=== PATIENT | male | born 1945 | race Caucasian/White ===

== ENCOUNTER 2020-07-25 07:49 | Outpatient (REF) | payer MEDICARE, SELFPAY ==
[2020-07-25 12:05] LABS: Alanine Aminotransferase 19 U/L (0-40); Albumin Level 4.2 g/dL (3.5-5.0); Alkaline Phosphatase 70 U/L (39-117); Anion Gap 12 (12-20); Aspartate Amino Transferase 16 U/L (5-37); Bilirubin Total 0.6 mg/dL (0.0-1.0); Blood Urea Nitrogen 13 mg/dL (9-16); Calcium 8.8 mg/dL (8.4-10.2); Carbon Dioxide 27 mmol/L (22-29); Chloride 105 mmol/L (96-108); Cholesterol 144 mg/dL; Estimated Glomerular Filt Rate > 60; Glucose Fasting 150 mg/dL (60-99); HDL Cholesterol 38 mg/dL; LDL Cholesterol Calculated 81 mg/dl; Potassium 4.6 mmol/l (3.3-5.1); Sodium 139 mmol/L (135-145); Total Protein 6.4 g/dL (6.5-8.0); Triglycerides 126 mg/dL
[2020-07-25 12:09] LABS: Estimated Average Glucose 163 mg/dL; Hemoglobin A1c % 7.3 %
== END 2020-07-25 07:50 | disposition home or self-care (01) ==
LOC: HO.MANLR 07:49
PROVIDERS: PCP Internal Medicine; Visit Provider Internal Medicine
DX: E11.9 Type 2 diabetes mellitus without complications (principal)
CPT/HCPCS: 80053; 80061; 83036

== ENCOUNTER 2020-07-31 15:20 | Outpatient (REF) | payer MEDICARE, SELFPAY ==
[2020-08-01 04:40] LABS: ~HepC Num1 0.13 S/CO (0.00-0.79); ~Hepatitis C Antibody Nonreactive (Nonreactive)
== END 2020-07-31 15:21 | disposition home or self-care (01) ==
LOC: HO.MANLDS 15:20
PROVIDERS: PCP Internal Medicine; Visit Provider Internal Medicine
DX: Z00.00 Encounter for general adult medical examination without abnormal findings (principal)
CPT/HCPCS: 86803

== ENCOUNTER 2020-10-25 08:20 | Outpatient (REF) | payer MEDICARE, SELFPAY ==
[2020-10-25 11:26] LABS: Alanine Aminotransferase 21 U/L (0-40); Albumin Level 4.2 g/dL (3.5-5.0); Alkaline Phosphatase 80 U/L (39-117); Anion Gap 10 (12-20); Aspartate Amino Transferase 15 U/L (5-37); Bilirubin Total 0.6 mg/dL (0.0-1.0); Blood Urea Nitrogen 14 mg/dL (9-16); Carbon Dioxide 28 mmol/L (22-29); Chloride 104 mmol/L (96-108); Cholesterol 150 mg/dL; Estimated Glomerular Filt Rate > 60; Glucose Fasting 177 mg/dL (60-99); HDL Cholesterol 36 mg/dL; LDL Cholesterol Calculated 87 mg/dl; Potassium 4.4 mmol/L (3.3-5.1); Sodium 138 mmol/L (135-145); Total Protein 6.5 g/dL (6.5-8.0); Triglycerides 139 mg/dL
[2020-10-25 11:44] LABS: Estimated Average Glucose 180 mg/dL; Hemoglobin A1c % 7.9 %
[2020-10-25 16:50] LABS: Creatinine Urine 139.84 mg/dL; Microalbum/Creatinine Ratio Ur 15.7 ug/mg cr
== END 2020-10-25 08:21 | disposition home or self-care (01) ==
LOC: HO.MANLR 08:20
PROVIDERS: PCP Internal Medicine; Visit Provider Internal Medicine
DX: E11.9 Type 2 diabetes mellitus without complications (principal)
CPT/HCPCS: 36415; 80053; 80061; 82043; 83036

== ENCOUNTER 2021-01-30 07:57 | Outpatient (REF) | payer MEDICARE, SELFPAY ==
[2021-01-30 12:31] LABS: Estimated Average Glucose 180 mg/dL; Hemoglobin A1c % 7.9 %
== END 2021-01-30 07:58 | disposition home or self-care (01) ==
LOC: HO.MANLDS 07:57
PROVIDERS: PCP Internal Medicine; Visit Provider Internal Medicine
DX: E11.9 Type 2 diabetes mellitus without complications (principal)
CPT/HCPCS: 36415; 83036

== ENCOUNTER 2021-05-18 07:46 | Outpatient (REF) | payer MEDICARE, SELFPAY ==
[2021-05-18 11:49] LABS: Alanine Aminotransferase 25 U/L (0-40); Albumin Level 4.2 g/dL (3.5-5.0); Alkaline Phosphatase 68 U/L (39-117); Anion Gap 11 (12-20); Aspartate Amino Transferase 18 U/L (5-37); Bilirubin Total 0.9 mg/dL (0.0-1.0); Blood Urea Nitrogen 13 mg/dL (9-16); Calcium 9.3 mg/dL (8.4-10.2); Carbon Dioxide 25 mmol/L (22-29); Chloride 107 mmol/L (96-108); Cholesterol 155 mg/dL; Estimated Glomerular Filt Rate > 60; Glucose Fasting 164 mg/dL (60-99); HDL Cholesterol 40 mg/dL; LDL Cholesterol Calculated 87 mg/dl; Potassium 4.4 mmol/L (3.3-5.1); Sodium 139 mmol/L (135-145); Total Protein 6.3 g/dL (6.5-8.0); Triglycerides 140 mg/dL
[2021-05-18 12:58] LABS: Creatinine Urine 152.38 mg/dL
[2021-05-19 07:21] LABS: Estimated Average Glucose 166 mg/dL; Hemoglobin A1c % 7.4 %
== END 2021-05-18 07:47 | disposition home or self-care (01) ==
LOC: HO.MANLDS 07:46
PROVIDERS: PCP Internal Medicine; Visit Provider Internal Medicine
DX: E11.9 Type 2 diabetes mellitus without complications (principal)
CPT/HCPCS: 36415; 80053; 80061; 82043; 83036

== ENCOUNTER 2021-08-07 07:45 | Outpatient (REF) | payer MEDICARE, SELFPAY ==
[2021-08-07 11:17] LABS: Estimated Average Glucose 189 mg/dL; Hemoglobin A1c % 8.2 %
== END 2021-08-07 07:46 | disposition home or self-care (01) ==
LOC: HO.MANLDS 07:45
PROVIDERS: PCP Internal Medicine; Visit Provider Internal Medicine
DX: E11.9 Type 2 diabetes mellitus without complications (principal)
CPT/HCPCS: 36415; 83036

== ENCOUNTER 2021-10-31 07:48 | Outpatient (REF) | payer MEDICARE, SELFPAY ==
[2021-10-31 11:29] LABS: Alanine Aminotransferase 25 U/L (0-40); Albumin Level 4.2 g/dL (3.5-5.0); Alkaline Phosphatase 76 U/L (39-117); Anion Gap 11 (12-20); Aspartate Amino Transferase 19 U/L (5-37); Bilirubin Total 0.6 mg/dL (0.0-1.0); Blood Urea Nitrogen 11 mg/dL (9-16); Calcium 9.2 mg/dL (8.4-10.2); Carbon Dioxide 27 mmol/L (22-29); Chloride 105 mmol/L (96-108); Cholesterol 158 mg/dL; Estimated Average Glucose 192 mg/dL; Estimated Glomerular Filt Rate > 60; Glucose Fasting 161 mg/dL (60-99); HDL Cholesterol 36 mg/dL; Hemoglobin A1c % 8.3 %; LDL Cholesterol Calculated 91 mg/dl; Potassium 4.2 mmol/L (3.3-5.1); Sodium 139 mmol/L (135-145); Total Protein 6.4 g/dL (6.5-8.0); Triglycerides 158 mg/dL
[2021-10-31 11:37] LABS: Creatinine Urine 161.98 mg/dL
[2021-10-31 11:49] LABS: Microalbum/Creatinine Ratio Ur 31.4 ug/mg cr
[2021-10-31 12:10] LABS: Prostate Specific Antigen 5.45 ng/mL (<0.05-4.0)
== END 2021-10-31 07:49 | disposition home or self-care (01) ==
LOC: HO.MANLDS 07:48
PROVIDERS: PCP Internal Medicine; Visit Provider Internal Medicine
DX: Z12.5 Encounter for screening for malignant neoplasm of prostate (principal); E11.9 Type 2 diabetes mellitus without complications
CPT/HCPCS: 36415; 80053; 80061; 82043; 83036; 84153

== ENCOUNTER 2021-12-18 08:38 | Outpatient (REF) | payer MEDICARE, SELFPAY ==
[2021-12-18 10:59] LABS: Estimated Average Glucose 148 mg/dL; Hemoglobin A1c % 6.8 %
== END 2021-12-18 08:39 | disposition home or self-care (01) ==
LOC: HO.MANLDS 08:38
PROVIDERS: PCP Internal Medicine; Visit Provider Internal Medicine
DX: E11.9 Type 2 diabetes mellitus without complications (principal)
CPT/HCPCS: 36415; 83036

== ENCOUNTER 2022-04-01 07:38 | Outpatient (REF) | payer MEDICARE, SELFPAY ==
[2022-04-01 11:16] LABS: Estimated Average Glucose 148 mg/dL; Hemoglobin A1c % 6.8 %
[2022-04-01 11:21] LABS: Alanine Aminotransferase 15 U/L (0-40); Albumin Level 4.1 g/dL (3.5-5.0); Alkaline Phosphatase 72 U/L (39-117); Anion Gap 12 (12-20); Aspartate Amino Transferase 14 U/L (5-37); Bilirubin Total 0.5 mg/dL (0.0-1.0); Blood Urea Nitrogen 18 mg/dL (9-16); Calcium 8.8 mg/dL (8.4-10.2); Carbon Dioxide 25 mmol/L (22-29); Chloride 107 mmol/L (96-108); Cholesterol 140 mg/dL; Estimated Glomerular Filt Rate > 60; Glucose Random 130 mg/dL (60-115); HDL Cholesterol 35 mg/dL; LDL Cholesterol Calculated 84 mg/dl; Potassium 4.2 mmol/L (3.3-5.1); Sodium 140 mmol/L (135-145); Total Protein 6.2 g/dL (6.5-8.0); Triglycerides 109 mg/dL
== END 2022-04-01 07:39 | disposition home or self-care (01) ==
LOC: HO.MANLDS 07:38
PROVIDERS: Visit Provider Internal Medicine
DX: Z12.5 Encounter for screening for malignant neoplasm of prostate (principal); E11.9 Type 2 diabetes mellitus without complications
CPT/HCPCS: 36415; 80053; 80061; 83036; 84153

== ENCOUNTER 2022-07-01 08:19 | Outpatient (REF) | payer MEDICARE, SELFPAY ==
[2022-07-01 11:18] LABS: Alanine Aminotransferase 20 U/L (0-40); Albumin Level 4.2 g/dL (3.5-5.0); Alkaline Phosphatase 69 U/L (39-117); Anion Gap 12 (12-20); Aspartate Amino Transferase 17 U/L (5-37); Bilirubin Total 0.6 mg/dL (0.0-1.0); Blood Urea Nitrogen 19 mg/dL (9-16); Calcium 9.1 mg/dL (8.4-10.2); Carbon Dioxide 29 mmol/L (22-29); Chloride 105 mmol/L (96-108); Cholesterol 156 mg/dL; Estimated Average Glucose 151 mg/dL; Estimated Glomerular Filt Rate > 60; Glucose Random 132 mg/dL (60-115); HDL Cholesterol 40 mg/dL; Hemoglobin A1c % 6.9 %; LDL Cholesterol Calculated 93 mg/dl; Potassium 4.5 mmol/L (3.3-5.1); Sodium 141 mmol/L (135-145); Total Protein 6.4 g/dL (6.5-8.0); Triglycerides 116 mg/dL
[2022-07-01 11:44] LABS: Prostate Specific Antigen 4.79 ng/mL (<0.05-4.0)
== END 2022-07-01 08:20 | disposition home or self-care (01) ==
LOC: HO.MANLDS 08:19
PROVIDERS: Visit Provider Internal Medicine
DX: E11.9 Type 2 diabetes mellitus without complications (principal); Z12.5 Encounter for screening for malignant neoplasm of prostate
CPT/HCPCS: 36415; 80053; 80061; 83036; 84153

== ENCOUNTER 2022-10-07 08:04 | Outpatient (REF) | payer MEDICARE, SELFPAY ==
[2022-10-07 12:05] LABS: Estimated Average Glucose 171 mg/dL; Hemoglobin A1c % 7.6 %
[2022-10-07 12:16] LABS: Creatinine Urine 160.29 mg/dL; Microalbum/Creatinine Ratio Ur 69.2 ug/mg cr
== END 2022-10-07 08:05 | disposition home or self-care (01) ==
LOC: HO.MANLDS 08:04
PROVIDERS: Visit Provider Internal Medicine
DX: E11.9 Type 2 diabetes mellitus without complications (principal)
CPT/HCPCS: 36415; 82043; 83036

== ENCOUNTER 2023-01-24 07:49 | Outpatient (REF) | payer MEDICARE, SELFPAY ==
[2023-01-24 11:56] LABS: Estimated Average Glucose 148 mg/dL; Hemoglobin A1c % 6.8 %
== END 2023-01-24 07:50 | disposition home or self-care (01) ==
LOC: HO.MANLDS 07:49
PROVIDERS: Visit Provider Internal Medicine
DX: E11.9 Type 2 diabetes mellitus without complications (principal)
CPT/HCPCS: 36415; 83036

== ENCOUNTER 2023-07-08 09:05 | Outpatient (REF) | payer MEDICARE, SELFPAY ==
[2023-07-08 13:45] LABS: Estimated Average Glucose 166 mg/dL; Hemoglobin A1c % 7.4 % (<6.0)
== END 2023-07-08 09:06 | disposition home or self-care (01) ==
LOC: HO.MANLDS 09:05
PROVIDERS: Visit Provider Internal Medicine
DX: E11.9 Type 2 diabetes mellitus without complications (principal)
CPT/HCPCS: 36415; 83036

== ENCOUNTER 2023-08-19 07:35 | Outpatient (REF) | payer MEDICARE, SELFPAY ==
[2023-08-19 13:44] LABS: Estimated Average Glucose 174 mg/dL; Hemoglobin A1c % 7.7 % (<6.0)
== END 2023-08-19 07:36 | disposition home or self-care (01) ==
LOC: HO.MANLDS 07:35
PROVIDERS: Visit Provider Internal Medicine
DX: E11.9 Type 2 diabetes mellitus without complications (principal)
CPT/HCPCS: 36415; 83036

== ENCOUNTER 2023-11-24 15:23 | Outpatient (REF) | payer MEDICARE, SELFPAY ==
[2023-11-24 18:06] LABS: Estimated Average Glucose 186 mg/dL; Hemoglobin A1c % 8.1 % (<6.0)
== END 2023-11-24 15:24 | disposition home or self-care (01) ==
LOC: HO.MANLDS 15:23
PROVIDERS: Visit Provider Internal Medicine
DX: E11.9 Type 2 diabetes mellitus without complications (principal)
CPT/HCPCS: 36415; 83036

== ENCOUNTER 2024-03-08 14:37 | Outpatient (REF) | payer MEDICARE, SELFPAY ==
[2024-03-09 07:17] LABS: Estimated Average Glucose 180 mg/dL; Hemoglobin A1c % 7.9 % (<6.0)
== END 2024-03-08 14:38 | disposition home or self-care (01) ==
LOC: HO.MANLDS 14:37
PROVIDERS: Visit Provider Internal Medicine
DX: E11.9 Type 2 diabetes mellitus without complications (principal)
CPT/HCPCS: 36415; 83036

== ENCOUNTER 2024-05-24 07:50 | Outpatient (REF) | payer MEDICARE, SELFPAY ==
[2024-05-24 13:59] LABS: Estimated Average Glucose 180 mg/dL; Hemoglobin A1c % 7.9 % (<6.0)
== END 2024-05-24 07:51 | disposition home or self-care (01) ==
LOC: HO.MANLDS 07:50
PROVIDERS: Visit Provider Internal Medicine
DX: E11.9 Type 2 diabetes mellitus without complications (principal)
CPT/HCPCS: 36415; 83036

== ENCOUNTER 2024-11-26 15:57 | Outpatient (REF) | payer MEDICARE, SELFPAY ==
[2024-11-26 18:12] LABS: Estimated Average Glucose 177 mg/dL; Hemoglobin A1C 177.0948 umol/L; Hemoglobin A1c % 7.8 % (<6.0)
[2024-11-26 18:14] LABS: Alanine Aminotransferase 27 U/L (0-40); Albumin Level 3.8 g/dL (3.5-5.0); Alkaline Phosphatase 77 U/L (39-117); Anion Gap 10 (12-20); Aspartate Amino Transferase 23 U/L (5-37); Bilirubin Total 0.2 mg/dL (0.0-1.0); Blood Urea Nitrogen 13 mg/dL (9-16); Calcium 9.3 mg/dL (8.4-10.2); Carbon Dioxide 26 mmol/L (22-29); Chloride 107 mmol/L (96-108); Estimated Glomerular Filt Rate > 60; Glucose Random 148 mg/dL (60-115); Potassium 4.3 mmol/L (3.3-5.1); Sodium 139 mmol/L (135-145); Total Protein 6.2 g/dL (6.5-8.0)
== END 2024-11-26 15:58 | disposition home or self-care (01) ==
LOC: HO.MANLDS 15:57
PROVIDERS: Visit Provider Physician Assistant
DX: R73.01 Impaired fasting glucose (principal)
CPT/HCPCS: 36415; 80053; 83036

== ENCOUNTER 2025-02-22 08:08 | Outpatient (REF) | payer MEDICARE, SELFPAY ==
--- OUTSIDE RECORDS SUMMARY | 2025-02-22 08:14 | XMS_ITS | Data Portability ---
Author Organization [facility], Telehealth Patient Home Address [address] [facility] [address] Assessment Encounter Date Assessment Date Assessment LastModified by Organization Details LastModified Time 03/12/2024 03/12/2024 [id number] [place] [id number] (PROFESSOR OF VIOLIN) MDM MODERATE MUST MEET 2 OUT OF 3 ELEMENTS: PROBLEMS, DATA OR RISK ELEMENT 1: PROBLEMS ADDRESSED 1 OR MORE CHRONIC ILLNESS WITH EXACERBATION OR 2 OR MORE STABLE CHRONIC ILLNESSES OR 1 UNDIAGNOSED NEW PROBLEM OR 1 ACUTE ILLNESS W/SYMPTOMS OR 1 ACUTE COMPLICATED INJURY ELEMENT 2: DATA MUST MEET 1 OF 3 CATEGORIES CATEGORY 1: REVIEW OF PRIOR EXTERNAL NOTES, REVIEW OF RESULTS, ORDERING OF EACH TEST, ASSESSMENT REQUIRING INDEPENDENT HISTORIAN OR CATEGORY 2: INDEPENDENT INTERPRETATION OF TESTS BY ANOTHER PHYSICIAN OR SPECIALIST OR CATEGORY 3: DISCUSSION OF MGT OR TEST INTERPRETATION W/EXTERNAL PHYSICIAN OR SPECIALIST ELEMENT 3: RISK RISK OF COMPLICATIONS AND/OR MORBIDITY OR MORTALITY OF PATIENT MANAGEMENT PROVIDER MUST THOROUGHLY DOCUMENT EACH ELEMENT THAT IS COVERED Not available 03/12/2024 14:49:27 05/25/2024 05/25/2024 Patient agreed and verbally consents to this audio and video Telehealth appt via a secure platform [email or web address] Not available 05/25/2024 14:43:59 08/18/2024 08/18/2024 [id number] [place] [id number] (PROFESSOR OF VIOLIN) MDM HIGH MUST MEET 2 OUT OF 3 ELEMENTS: PROBLEMS, DATA OR RISK ELEMENT 1: PROBLEMS 1 OR MORE CHRONIC ILLNESS W/SEVERE EXACERBATION, PROGRESSION MAY REQUIRE HOSPITAL LEVEL CARE OR 1 ACUTE OR CHRONIC ILLNESS OR INJURY THAT POSES A THREAT TO LIFE OR BODILY FUNCTION ELEMENT 2: DATA: MUST MEET 2 OF 3 CATEGORIES CATEGORY 1 REVIEW OF PRIOR EXTERNAL NOTES REVIEW OF THE RESULTS ORDERING OF EACH TEST ASSESSMENT REQUIRING INDEPENDENT HISTORIAN(S) CATEGORY 2: INDEPENDENT INTERPRETATION OF TESTS BY ANOTHER PROVIDER/SPECIALI ST CATEGORY 3: DISCUSSION OF MGT OR TEST INTERPRETATION W/EXTERNAL PHYSICIAN/SPECIAL IST ELEMENT 3: RISK HIGH RISK OF MORBIDITY FROM ADDITIONAL DIAGNOSTIC TESTING OR TREATMENT PROVIDER MUST THOROUGHLY DOCUMENT EACH ELEMENT THAT IS COVERED Not available 08/18/2024 11:26:27 11/02/2024 11/02/2024 [id number] [place] [id number] (PROFESSOR OF VIOLIN) MDM HIGH MUST MEET 2 OUT OF 3 ELEMENTS: PROBLEMS, DATA OR RISK ELEMENT 1: PROBLEMS 1 OR MORE CHRONIC ILLNESS W/SEVERE EXACERBATION, PROGRESSION MAY REQUIRE HOSPITAL LEVEL CARE OR 1 ACUTE OR CHRONIC ILLNESS OR INJURY THAT POSES A THREAT TO LIFE OR BODILY FUNCTION ELEMENT 2: DATA: MUST MEET 2 OF 3 CATEGORIES CATEGORY 1 REVIEW OF PRIOR EXTERNAL NOTES REVIEW OF THE RESULTS ORDERING OF EACH TEST ASSESSMENT REQUIRING INDEPENDENT HISTORIAN(S) CATEGORY 2: INDEPENDENT INTERPRETATION OF TESTS BY ANOTHER PROVIDER/SPECIALI ST CATEGORY 3: DISCUSSION OF MGT OR TEST INTERPRETATION W/EXTERNAL PHYSICIAN/SPECIAL IST ELEMENT 3: RISK HIGH RISK OF MORBIDITY FROM ADDITIONAL DIAGNOSTIC TESTING OR TREATMENT PROVIDER MUST THOROUGHLY DOCUMENT EACH ELEMENT THAT IS COVERED The patient presented to their appointment today for multiple concerns requiring moderate to high-level decision making and took over 40-45 minutes for an adequate and appropriate history, exam, assessment and treatment plan. This appointment was done with an established patient. Not available 11/02/2024 14:22:59 Plan of Treatment Reminders Order Date Submit Date Provider Last Modified By Organization Details Last Modified Time Details Appointments FOLLOW UP 15 2024 02:00P M DR OLIVEIRA Not available Not available Not available Lab hemoglobi n A1c, QN, blood 2024 025 [facility], [address] [place] [address], [id number], 11/29/2024 12:18:36 CMP, serum or plasma 2024 025 [facility], [address] [place] [address], [id number], 11/29/2024 12:18:36 CMP, serum or plasma 2024 025 [facility], [address] [place] [address], [id number], 11/17/2024 14:31:31 lipid panel, blood 2024 025 [facility], [address] [place] [address], [id number], 11/02/2024 14:22:59 microalbu min, urine 2024 025 [facility], [address] [place], [address], 11/02/2024 14:22:59 HbA1c (hemoglob in A1c), blood 2023 024 [facility], [place], [address], 10/25/2024 13:29:59 HbA1c (hemoglob in A1c), blood 2024 025 [facility], [place], [address], 10/25/2024 13:29:58 Referral None recorded. Procedures None recorded. Surgeries None recorded. Imaging CT, abdomen + pelvis, w/o contrast 2024 025 [facility], [address] [place] [address], [id number], 2024 09:04:25 CT, chest, w/ contrast 2024 025 [facility], [address] [place] [address], [address], 2024 09:04:25 CT, sinuses, w/o contrast 2023 024 [facility], [address] [place] [address], [address], 08/20/2024 08:33:43 Medication Orders Silvadene 1 % topical cream 2024 025 [id number], [address] [place], [place], [phone], 11/26/2024 15:47:00 albuterol sulfate HFA 90 mcg/actua tion aerosol inhaler 2023 024 [facility] Not available 03/12/2024 15:02:01 Patient TargetsNo targets recorded. Patient Instructions Encounter Date Encounter Id Patient Instructions Last Modified By Organization Details Last Modified Time 03/12/2024 [id number] chronic obstructive pulmonary disease (COPD): care instructions Not available 03/12/2024 15:01:56 learning about copd and how to prevent lung infections Not available 03/12/2024 15:01:56 11/02/2024 [id number] Peripheral Arterial Disease (PAD): Care Instructions Not available 11/02/2024 14:21:35 pulse oximetry* Not available 11/02/2024 14:21:35 heart failure: care instructions Not available 11/02/2024 14:21:35 learning about heart failure Not available 11/02/2024 14:21:35 Reason for Referral None Reported. Results Created Date Observation Date Name Description Value Unit Range Abnormal Flag Note LastModifiedBy Organization Detail LastModifiedTime 10/25/1910/25/2024 HbA1c (hemo globi n A1c), blood A1C 8.2 abnormal Not Available [facility] [address] [place], [address], 10/25/2024 13:06:40 11/03/19 25 11/02/2024 pulse oxime try* Result 94 Not Available [facility] [address] [facility] [address], [place], [address], 11/01/2024 16:15:42 06/17/2006/17/2024 CT, angio gram, abdom en + pelvi s, w/ contr ast No observ ation record ed. [email or web address] [facility] [address] [facility] [address], [place], [address], 06/18/2024 08:41:35 08/31/20 24 08/28/2024 CT, sinus es, w/o contr ast No observ ation record ed. [address], [address], 09/05/2024 20:43:41 12/09/19 25 12/06/2024 CT, abdom en + pelvi s, w/ contr ast No observ ation record ed. [email or web address] [facility] [address] [place] [address], [address], 12/08/2024 13:35:34 12/09/19 25 12/06/2024 CT, abdom en + pelvi s, w/ contr ast No observ ation record ed. [email or web address] [facility] [address] [place] [address], [address], 12/08/2024 15:19:02 Result Notes None recorded. Problems Name Problem SNOMED Code Status Onset Date Resolution Date Notes Provider Name and Address Organization Details Recorded Time Acute urinary tract infectio n 299781167 Active 2017 Not Available [facility] 2 12:23:55 Eczema 55975330 Active 2018 Not Available [facility] 2 12:23:55 Type 2 diabetes mellitus 61453025 Active 2019 Not Available [facility] 2 12:23:55 Asthma 290018462 Active 2020 Not Available [facility] 2 12:23:55 Smoker 10461828 Active 2021 Not Available [facility] 2 12:23:55 Chronic sinusiti s 54156709 Active 2021 Jeffrey Oliveira DO [address] [place] [address], [address], [facility] 2 13:47:41 Acute sinusiti s 17827899 Active 2021 Jeffrey Oliveira DO [address] [place] [address], [address], [place] [facility] [address] 2 16:50:10 Vertigo 032587095 Active 2022 Jeffrey Oliveira, DO [address] [place] [address], [address], [facility] 3 14:32:21 Stasis ulcer Active 2022 Jeffrey OneydaChristina Oliveira, DO [address] [place] [address], [address], [facility] 3 14:34:58 Chronic obstruct latasha pulmonar y disease 17305622 Active 2022 Jeffrey Oliveira, DO [address] [place] [address], [address], [facility] 3 14:35:00 Acquired trigger finger 0785083 Active 2022 Jeffrey Oliveira, DO [address] [place] [address], [address], [facility] 3 14:04:18 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 Jeffrey Oliveira, DO [address] [place] [address], [address], [facility] 4 10:07:57 Congesti ve heart failure 57740881 Active 2023 Jeffrey Oliveira, DO [address] [place] [address], [address], [facility] 4 15:02:16 Furuncle 077430363 Active 2023 Jeffrey Oliveira, DO [address] [place] [address], [address], [facility] 4 15:12:14 Ganglion cyst of right hand 12686726724 9107 Active 2023 PAUL GREGG [address] [place] [address], [address], [facility] 4 14:49:37 Skin lesion 18393147 Active 2023 PAUL GREGG [address] [place], [address], [facility] 4 14:49:46 Chronic recurren t sinusiti s 392888264 Active 2023 Jeffrey Oliveira, DO [address] [place], [address], [facility] 4 11:20:58 Chronic left maxillar y sinusiti s 34828451108 728698 Active 2024 Jeffrey Oliveira, DO [address] [place], [address], [facility] 5 20:44:11 Frostbit e of toe of left foot 94945555990 728292 Active 2024 Jeffrey Oliveira, DO [address] [place], [address], [facility] 5 14:20:42 Impaired fasting glycemia 421104684 Active 2024 PAUL GREGG [address] [place], [address], [facility] 5 15:47:12 [facility] l hyperten jonathan 72915069 Active 2017 Not Available [facility] 2 12:23:55 Abdomina l aortic aneurysm 413397180 Active 2017 Not Available [facility] 2 12:23:55 Impaired fasting glycemia 263245028 Completed 201704/26/2020 PAUL GREGG [address] [place], [address], [facility] 5 15:47:13 Multiple nodules of lung 717947898 Active 2017 Not Available [facility] 2 12:23:55 Tobacco user 552743725 Active 2017 Not Available [facility] 2 12:23:55 Abdomina l pain 68876631 Active 2017 Not Available [facility] 2 12:23:55 Peripher al vascular disease 578278177 Active 2017 Not Available [facility] 2 12:23:55 Problem Notes None recorded. Procedures Surgical History Date Name Laterality Status Provider Name and Address Organization Details Recorded Time 4 Colonoscopy completed [facility] 04/20/2019 15:23:50 Imaging Results None recorded. Procedure Notes None recorded. Medical Equipment None Reported. Allergies No known drug allergies Medications Name Sig Start Date Stop Date Status Note LastModified by Organization Details LastModified Time Prescriptio n - Prior Authorizati on Request 04/26 completed Not Available Not Available Not Available amoxicillin 500 mg capsule 11/26 completed Not Available Not Available Not Available silver sulfadiazin e 1 % topical cream APPLY A 1/16 INCH (1.5 MM) THICK LAYER TO ENTIRE BURN AREA BY TOPICAL ROUTE 2 TIMES PER DAY 11/26 completed Not Available Not Available Not Available ammonium lactate 12 % lotion APPLY TOPICALLY TO THE AFFECTED AREA TWICE DAILY active Not Available Not Available No t Available Lac-Hydrin Five 5 % lotion Apply 1 applicati on twice a day by topical route for 30 days. 2019 active Not Available Not Available Not Avai lable valacyclovi r 1 gram tablet Take 1 tablet 3 times a day by oral route for 7 days. 04/26 completed Not Available Not Available Not Available prednisone 20 mg tablet TAKE 1 TABLET BY MOUTH EVERY DAY DIRECTED 04/02 completed Not Available Not Available Not Available prednisone 5 mg tablet 04/26 completed Not Available Not Available Not Available clobetasol 0.05 % topical cream APPLY THIN LAYER EXTERNALL Y TO THE AFFECTED AREA TWICE DAILY 04/26 completed Not Available Not Available Not Available ciprofloxac in 500 mg tablet Take 1 tablet every 12 hours by oral route for 10 days. 10/06 completed Not Available Not Available Not Available lovastatin 10 mg tablet TAKE 1 TABLET DAILY active Not Available Not Available No t Available triamcinolo ne acetonide 0.1 % topical cream 05/25 completed Not Available Not Available Not Available ciclopirox 8 % topical solution 04/26 completed Not Available Not Available Not Available meclizine 25 mg tablet Take 1 tablet 3 times a day by oral route for 10 days. 11/23 completed Not Available Not Available Not Available cephalexin 500 mg capsule 05/25 completed Not Available Not Available Not Available moexipril 15 mg tablet TAKE 1 TABLET DAILY 04/15 completed Not Available Not Available Not Available nystatin 100,000 unit/gram topical cream 05/25 completed Not Available Not Available Not Available Advair Diskus 250 mcg-50 mcg/dose powder for inhalation use 1 inhalatio n orally twice a day active Not Available Not Available No t Available halobetasol propionate 0.05 % topical cream APPLY A THIN LAYER TO THE AFFECTED AREA TWICE DAILY 07/31 completed Not Available Not Available Not Available mupirocin 2 % topical ointment Apply 1 applicati on 3 times a day by topical route for 30 days. 05/25 completed Not Available Not Available Not Available Transderm-S advertising copywriter 1 mg over 3 days transdermal patch Apply 1 patch every 72 hours by transderm al route for 12 days. 10/06 completed Not Available Not Available Not Available ibuprofen 600 mg tablet TAKE 1 TABLET BY MOUTH THREE TIMES DAILY NEEDED active Not Available Not Available No t Available albuterol sulfate HFA 90 mcg/actuati on aerosol inhaler Inhale 2 puffs every 4 hours by inhalatio n route for 30 days. active Not Available Not Available No t Available benazepril 10 mg tablet TAKE 1 TABLET DAILY active Not Available Not Available No t Available betamethaso ne dipropionat e 0.05 % topical ointment BID 04/26 completed Not Available Not Available Not Available fluticasone propionate 50 mcg/actuati on nasal spray,suspe nsion USE 2 SPRAYS IN EACH NOSTRIL ONCE DAILY active Not Available Not Available No t Available amoxicillin 875 mg-potassiu m clavulanate 125 mg tablet Take 1 tablet every 12 hours by oral route for 10 days. 10/08 completed Not Available Not Available Not Available Flexeril 10 mg tablet Take 1 tablet 3 times a day by oral route. 04/02 completed Not Available Not Available Not Available oxycodone 5 mg tablet 04/02 completed Not Available Not Available Not Available Pneumovax-2 3 25 mcg/0.5 mL injection syringe ADM 0.5ML IM UTD 07/31 completed Not Available Not Available Not Available Brandy-D 24 Hour 180 mg-240 mg tablet,exte nded release TAKE 1 TABLET BY MOUTH DAILY 2022 active Not Available Not Available Not Avai lable multivitami n active Not Available Not Available Not Available ProAir HFA 2 puffs every 4 hours prn 04/02 completed Not Available Not Available Not Available Brandy Allergy 06/16 completed Not Available Not Available Not Available Brandy-D 09/02 completed Not Available Not Available Not Available Breo Ellipta 200 mcg-25 mcg/dose powder for inhalation USE 1 INHALATIO N ORALLY DAILY active Not Available Not Available No t Available Fluzone High-Dose Quad 2020-21 (PF) 240 mcg/0.7 mL IM syringe ADM 0.7ML IM UTD 07/31 completed Not Available Not Available Not Available Astepro Allergy 205.5 mcg (0.15 %) nasal spray Pacolet 1 spray twice a day by intranasa l route. active Not Available Not Available No t Available Vitals Date Recorded Body height Body mass index (BMI) Body weight Heart rate Oxygen saturation Oxygen saturation in Arterial blood by Pulse oximetry Systolic blood pressure Diastolic blood pressure Provider Name and Address Organization Details Last Updated DateTime 5 170.18 cm 25.6 kg/m2 07046.3 5 g 56 /min 94 % 94 % 146 mm[Hg] 92 mm[Hg] Mariely Romero [facility] 5 14:03:59 Date Recorded Body height Body mass index (BMI) Body weight Heart rate Oxygen saturation Oxygen saturation in Arterial blood by Pulse oximetry Systolic blood pressure Diastolic blood pressure Provider Name and Address Organization Details Last Updated DateTime 5 170.18 cm 25.5 kg/m2 88950.5 6 g 58 /min 98 % 98 % 118 mm[Hg] 70 mm[Hg] Nazanin Lee [facility] 5 15:11:02 Date Recorded Body height Body mass index (BMI) Body weight Heart rate Oxygen saturation Oxygen saturation in Arterial blood by Pulse oximetry Systolic blood pressure Diastolic blood pressure Provider Name and Address Organization Details Last Updated DateTime 4 170.18 cm 26 kg/m2 13276.3 3 g 69 /min 96 % 96 % 128 mm[Hg] 78 mm[Hg] Nazanin Lee [facility] 4 14:35:43 Date Recorded Body height Body mass index (BMI) Body weight Heart rate Oxygen saturation Oxygen saturation in Arterial blood by Pulse oximetry Systolic blood pressure Diastolic blood pressure Provider Name and Address Organization Details Last Updated DateTime 4 170.18 cm 25.7 kg/m2 84778.1 5 g 80 /min 98 % 98 % 118 mm[Hg] 70 mm[Hg] Archie Braun [facility] 4 10:58:06 Social History Question Answer Notes LastModified by Organizat ion Details LastModified Time Tobacco Smoking Status Current Every Day Smoker Not Available [facility] 07/04/2020 03:36:24 What Was The Date Of Your Most Recent Tobacco Screening? 11/26/2024 [email or web address] Information not available 11/26/2024 How Much Tobacco Do You Smoke? 0.25 PPD [email or web address] Information not available 08/18/2024 Sex: Unknown Functional Status Question Answer Note LastModified by Organization D etails LastModified Time Do you or have you ever used any other forms of tobacco or nicotine? No Information not available 07/02/2022 Mental Status None recorded. Family History Nothing Reported. Medical History No medical history recorded. Immunizations Vaccine Type Date Status Note Provider Nam e and Address Organization Details Recorded Time Influenza, split virus, quadrivalent, preservative 06/01/20 21 completed Jeffrey Oliveira DO [address] [place] [address], [address], [facility] 11/14/2021 14:22:45 Td (adult) 09/01/19 22 completed Jeffrey Oliveira DO [address] [place] [address], [address], [facility] 11/14/2021 14:23:12 COVID-19, mRNA, LNP-S, PF, 30 mcg/0.3 mL dose 07/01/20 21 completed Jeffrey Oliveira DO [address] [place] [address], [address], [facility] 11/14/2021 14:24:03 Influenza, split virus, quadrivalent, preservative 06/09/20 18 [facility] 15:39:59 COVID-19, mRNA, LNP-S, PF, 30 mcg/0.3 mL dose 06/23/20 22 [facility]2022 13:46:19 Influenza, split virus, quadrivalent, preservative 06/07/20 22 completed Jeffrey Oliveira DO [address] [place] [address], [address], [facility] 07/02/2022 13:32:54 Influenza, split virus, quadrivalent, preservative 05/16/20 20 [facility] 07/31/2020 14:31:00 pneumococcal polysaccharide PPV23 05/16/20 [facility] 07/31/2020 14:31:25 COVID-19, mRNA, LNP-S, PF, 30 mcg/0.3 mL dose 10/25/19 21 completed Jeffrey Oliveira DO [address] [place] [address], [address], [facility] 10/31/2020 14:05:27 COVID-19, mRNA, LNP-S, PF, 30 mcg/0.3 mL dose 11/16/19 21 [facility]/06/2021 14:44:08 Past Encounters Encounter ID Performer Location Encounter Start Date Encounter Closed Date Diagnosis/Indication Diagnosis SNOMED-CT Code Diagnosis ICD10 Code Diagnosis Note [id number] Jeffrey Oliveira DO [facility] [address] [facility] [address] 01/19/2018 10:33:58 01/19/2018 11:57:34 Essential hypertension 20280866 I10 stable thus far with current meds Abdominal pain 75428510 R10.9 pain is gone and now currently is asympotoma tic he does have an AAA and this will be investigat ed must cont to monitor but feel this may represent food bourne Abdominal aortic aneurysm 797880397 I71.4 will need to repeat ct scan in 6 mo Multiple n odules of lung 536438463 R91.8 will need to have repeat ct in 2 months Peripheral vascular disease 952591355 I73.9 will be calling vas surg for follow up appt [id number] Jeffrey Oliveira DO [facility] [address] [facility] [address] 04/08/2018 15:30:54 04/08/2018 15:59:31 Tobacco user 928072020 Z72.0 1/2 pack a day has tried to quit many times. nothing consistent ly encouraged of course to keep trying to quit Essential hypertension 47503045 I10 mildly elevated today Acute urin freddie tract infection 884473516 N39.0 he already has f/u for 04/28 scheduled - would suggest a repeat UA to confirm resolution of hematuria at that point presence of nitrites in urine suggest infectious process if any changes before f/u please come back in sooner [id number] Jeffrey Oliveira DO [facility] [address] [facility] [address] 04/28/2018 15:55:46 04/29/2018 08:55:12 Impaired fasting glycemia 603054733 R73.01 doing well overall Essential hypertension 85518265 I10 stable thus far with current meds Tobacco user 930999676 Z 72.0 discjussed quitting in detail Acute urin freddie tract infection 287002109 N39.0 will repeat the ua cs to ensure clearance Serous otitis media 8032 7007 H65.92 will start sudafed, flonase and afrin to alllow drainage and we will chk next week as he is leaving for [place] next week Abdominal aortic aneurysm 759585163 I71.[address] to repeat ct scan in 6 mo has a 3.5 cm AAA which is stable discussed will be seeing vascular in future with further tests for renal arteries etc [id number] Jeffrey Oliveira DO [facility] [address] [facility] [address] 05/05/2018 15:56:33 05/05/2018 16:49:11 Serous otitis media 64354007 H65.92 have start sudafed, flonase and afrin to alllow drainage and has done well with this and is now ok to go next week as he is leaving for [place] next week Partial ob struction of small bowel 933276726 K56.699 MR enterograp hy as requested [id number] Jeffrey Oliveira [facility] [address] [facility],[place] [address] 06/16/2018 15:35:12 06/16/2018 16:35:13 Abdominal aortic aneurysm 483704585 I71.4 given involvment of the renal art and evid of sl interval increase i agree he needs to follow up with vascular discussed will be seeing vascular in future with further tests for renal arteries etc Essential hypertension 75379677 I10 stable thus far with current meds [id number] Jeffrey Oliveira DO [facility] [address] [facility],[place] [address] 09/02/2018 14:58:36 09/04/2018 11:03:33 Peripheral vascular disease 472485714 I73.9 will be calling vasc surg for follow up appt Essential hypertension 39860625 I10 stable thus far with current meds Trigger fi nger of left hand 1379849537 3922867 M65.30 Nummular eczema 76576255 L30.0 [id number] Jeffrey Oliveira DO [facility] [address] [facility],[place] [address] 10/06/2018 11:28:11 10/06/2018 12:35:17 Impaired fasting glycemia 298182114 R73.01 well controlled Abdominal aortic aneurysm 454757506 I71.4 stable per vascular Essential hypertension 35259203 I10 well controlled Stasis ulcer 818466333 I 83.009 apply silvadene cover, f/u 2 weeks quitting smoking exercising , elevating the legs avoiding too snug of shoes which can cause friction avoiding prolonged periods of cold causing activities such as winter fishing without proper protection from cold Tobacco user 813880463 Z 72.0 1/2 pack a day has tried to quit many times. nothing consistent ly encouraged of course to keep trying to quit [id number] Jeffrey Oliveira DO [facility] [address] [facility], [place] [address] 10/20/2018 11:27:07 10/20/2018 13:52:39 Impaired fasting glycemia 339962203 R73.01 well controlled Abdominal aortic aneurysm 429072977 I71.4 stable per vascular Essential hypertension 99929693 I10 well controlled Stasis ulcer 286341970 I 83.009 much improved no longer require silvadene check feet everyday for changes in skin consider podiatry for nails recommend quitting smoking exercising , elevating the legs avoiding too snug of shoes which can cause friction avoiding prolonged periods of cold causing activities such as winter fishing without proper protection from cold Tobacco user 063146682 Z 72.0 1/2 pack a day has tried to quit many times. nothing consistent ly encouraged of course to keep trying to quit [id number] Jeffrey Oliveira [facility] [address] [facility] [address],[place] [address] 12/08/2018 14:57:46 12/08/2018 15:26:45 Essential hypertension 39567204 I10 stable thus far with current meds bp has been stable Impaired f asting glycemia 959275847 R73.01 doing well overall [id number] Jeffrey Oliveira [facility] [address] [facility] [address], [place] [address] 04/20/2019 14:25:27 04/20/2019 14:59:02 Essential hypertension 21473918 I10 stable thus far with current meds bp has been stable Impaired f asting glycemia 840410069 R73.01 doing well overall Asthma 012461522 J45.90 9 Eczema 05065203 L30.9 here for tx will try the halobetaso l [id number] Jeffrey Oliveira [facility] [address] [facility] [address],[place] [address] 08/13/2019 13:59:30 08/13/2019 14:26:22 Herpes zoster 1827703 B02.9 Essential hypertension 90299546 I10 moderately elevated today. will have him recheck it at f/u on 08/17/19 Pain in left arm 5795566 00 M79.602 likely related to the shingles will treat has prednisone and muscle relaxer from er for his arm so that seems adequate [id number] Jeffrey Oliveira [facility] [address] [facility],[place] [address] 08/18/2019 14:24:35 08/18/2019 14:53:18 Herpes zoster 6385317 B02.9 in distributi on of C6 pattern area is improved with the vala note he is taking prednisone from the ER to treat a possible radiculopa thy (doubt) told him to cont this and use valacyc for 10 and to stop pred Abdominal aortic aneurysm 588484389 I71.4 given involvment of the renal art and evid of sl interval increase i agree he needs to cont with vascular discussed will be seeing vascular in follow up with further tests for renal arteries etc [id number] Jeffrey Oliveira [facility] [address] [facility] [place] [address] 12/14/2019 13:31:23 12/14/2019 14:23:17 Type 2 diabetes mellitus 84864271 E11.9 a1c is 7.0 doing ok in the pandemic even though eating more rechk in 3-4 mo Essential hypertension 94908507 I10 stable thus far with current meds bp has been stable Eczema 59301788 L30.9 here for tx will try the halobetaso l [id number] Jeffrey Oliveira [facility] [address] [facility], [place] [address] 04/26/2020 14:42:54 04/26/2020 15:15:12 Type 2 diabetes mellitus 60635880 E11.9 a1c is 7.4 and was 7.0 doing ok in the pandemic even though eating more rechk in 3-4 mo Essential hypertension 19224595 I10 stable thus far with current meds bp has been stable Peripheral vascular disease 504145917 I73.9 will be calling vasc surg for follow up appt [id number] Jeffrey Oliveira [facility] [address] [facility] [address], [place] [address] 07/31/2020 14:26:29 07/31/2020 15:16:32 Essential hypertension 09214538 I10 stable thus far with current meds bp has been stable Type 2 travis betes mellitus 81630422 E11.9 a1c is 7.4 and was 7.0 doing ok in the pandemic even though eating more rechk in 3-4 mo Eczema 55304070 L30.9 here for tx will try the halobetaso l Chronic ob structive pulmonary disease 02469271 J44.9 Adult heal th examination 480549045 Z00.00 [id number] Jeffrey Oliveira [facility] [address] [facility],[place] [address] 10/31/2020 13:58:28 10/31/2020 15:07:24 Type 2 diabetes mellitus 21894805 E11.9 a1c is 7.9 and was 7.4 and was 7.0 doing ok in the pandemic even though eating more rechk in 3-4 mo warned r3e a1c levels and he will improve his diet Essential hypertension 17411083 I10 stable thus far with current meds bp has been stable Peripheral vascular disease 746478112 I73.9 will be calling vasc surg for follow up appt later this year await call for appt [id number] Jeffrey Oliveira DO [facility] Internal Medicine [address] [facility],[place] [address] 02/06/2021 14:27:21 02/06/2021 15:39:06 Type 2 diabetes mellitus 32571976 E11.9 a1c is 7.9 and was 7.4 and was 7.0 doing ok in the pandemic even though eating more rechk in 3-4 mo warned r3e a1c levels and he will improve his diet Peripheral vascular disease 859013796 I73.9 will be calling vasc surg for follow up appt later this year await call for appt Chronic ob structive pulmonary disease 04174300 J44.9 here for rechk Stasis ulcer 888775570 I 83.009 stable no issues Abdominal aortic aneurysm 286030351 I71.4 given involvment of the renal art and evid of sl interval increase i agree he needs to cont with vascular discussed will be seeing vascular in follow up with further tests for renal arteries etc [id number] Jeffrey Oliveira [facility] [address] [facility],[place] [address] 05/22/2021 08:28:38 05/22/2021 15:07:08 Essential hypertension 48598106 I10 stable thus far with current meds bp has been stable at home no issues Eczema 78260742 L30.9 here for tx will try the halobetaso l Type 2 travis betes mellitus 35506082 E11.9 a1c is now 7.4 and is doing better than the last reading of 7.9 and was 7.4 and was 7.0 doing ok in the pandemic even though eating more rechk in 3-4 mo warned a1c levels and he will cont to improve his dietmicroa lbumin is negative and doing well Tobacco user 011186824 Z 72.0 discjussed quitting in detailand i bugged him again about thios [id number] Jeffrey Oliveira [facility] [address],[place] [address] 08/15/2021 08:29:18 08/15/2021 15:01:03 Tobacco user 036676304 Z72.0 discjussed quitting in detailand i bugged him again about this and we had to renew the alburterol proair Peripheral vascular disease 453258111 I73.9 will be calling [facility] surg for follow up appt later this year await call for appt Essential hypertension 18112019 I10 stable thus far with current meds bp has been stable at home no issues Type 2 travis betes mellitus 99581449 E11.9 a1c is now 8.2 not good he was early siummer 7.4 and is doing better than the last reading of 7.9 and was 7.4 and was 7.0 doing ok in the pandemic even though eating more rechk in 3-4 mo warned a1c levels and he will cont to improve his dietmicroa lbumin is negative and doing well Asthma 092685094 J45.90 9 has had issue early this summer Trigger fi nger of left hand [id number] 8989814 M65.[address] madrid tomorrow Eczema 50853340 L30.9 here for tx will try the halobetaso l [id number] Jeffrey Oliveira [facility] [address],[place] [address] 11/14/2021 14:17:54 11/14/2021 16:16:40 Type 2 diabetes mellitus 89261575 E11.9 a1c is now 8.2 not good he was early siummer 7.4 and is doing better than the last reading of 7.9 and was 7.4 and was 7.0 doing ok in the pandemic even though eating more rechk in 3-4 mo warned a1c levels and he will cont to improve his dietmicroa lbumin is negative and doing well Essential hypertension 53551480 I10 stable thus far with current meds bp has been stable at home no issues Asthma 241775513 J45.90 9 has had issue early this summer Stasis ulcer 575734217 I 83.009 stable no issues Chronic ob structive pulmonary disease 59666844 J44.9 here for rechk Peripheral vascular disease 870737412 I73.9 will be calling [facility] surg for follow up appt later this year await call for appt At [facility] risk of ulcer of foot due to diabetes mellitus 527233806 Z91.89 [id number] Jeffrey Oliveira DO [facility] [address] [facility],[place] [address] 12/26/2021 15:08:23 12/26/2021 15:58:09 Type 2 diabetes mellitus 65256667 E11.9 a1c is now 8.2 not good he was early siummer 7.4 and is doing better than the last reading of 7.9 and was 7.4 and was 7.0 doing ok in the pandemic even though eating more rechk in 3-4 mo warned a1c levels and he will cont to improve his dietmicroa lbumin is negative and doing well Asthma 945313530 J45.90 9 has had issue early this summer Essential hypertension 28387115 I10 stable thus far with current meds bp has been stable at home no issues he will cut the moexpril in half so he is taking 7.5mg tablet Abdominal aortic aneurysm 170243563 I71.4 this has been stable per the vascular dr last month had a good exam donediscus sed will be seeing vascular in follow up with further tests for renal arteries etc [id number] Jeffrey Oliveira DO [facility] Medicine [address] [facility],[place] [address] 04/02/2022 14:58:53 04/02/2022 15:49:28 Asthma 585408052 J45.909 has had issue early this summer Essential hypertension 20269176 I10 stable thus far with current meds bp has been stable at home no issues he will cut the moexpril in half so he is taking 7.5mg tablet Type 2 travis betes mellitus 30620896 E11.9 a1c is now 6.8 excellent rechk in 3-4 mo warned a1c levels and he will cont to improve his dietmicroa lbumin is negative and doing well Smoker 58232788 F17.200 [id number] Jeffrey Oliveira [facility] [address] [facility], [place] [address] 07/02/2022 13:29:18 07/02/2022 15:42:16 Type 2 diabetes mellitus 27267113 E11.9 a1c is now 6.9 still and prior was 6.8 excellent rechk in 3-4 mo warned a1c levels and he will cont to improve his dietmicroa lbumin is negative and doing well Asthma 475765508 J45.90 9 has had issue early this summer Active or passive immunization 959886195 Z23 patient advised he is due for flu shot, pneu 13 & shingles Chronic sinusitis 414358 00 J32.9 [id number] Jeffrey Oliveira [facility] [address] [facility],[place] [address] 10/08/2022 14:15:44 10/08/2022 15:16:14 Type 2 diabetes mellitus 46402933 E11.9 a1c is now7.6 was 6.9 still and prior was 6.8 excellent rechk in 3-4 mo warned a1c levels and he will cont to improve his dietmicroa lbumin is negative and doing well Essential hypertension 28758841 I10 stable thus far with current meds bp has been stable at home no issues he will cut the moexpril in half so he is taking 7.5mg tablet Stasis ulcer 419923238 I 83.009 stable no issues Chronic ob structive pulmonary disease 06007972 J44.9 here for rechk Abdominal aortic aneurysm 684579120 I71.40 Vertigo 900620281 R42 [id number] Jeffrey Oliveira [facility] [address] [facility],[place] [address] 01/29/2023 15:38:41 01/29/2023 16:37:01 Chronic obstructive pulmonary disease 40488696 J44.9 here for rechk Type 2 travis betes mellitus 62933167 E11.9 a1c is now 6.8 and is stable 7.6 was 6.9 still and prior was 6.8 excellent rechk in 3-4 mo warned a1c levels and he will cont to improve his dietmicroa lbumin is negative and doing well Asthma 042345469 J45.90 9 has had issue early this summer Essential hypertension 45051841 I10 stable thus far with current meds bp has been stable at home no issues he will cut the moexpril in half so he is taking 7.5mg tablet Abdominal aortic aneurysm 330686396 I71.40 size increased from 3.9 to 4.5 he will be seeing surgeon after repeat US in march Chronic sinusitis 989243 00 J32.9 will have this done xray [id number] [facility] [address] [facility],[place] [address] 06/13/2023 13:46:52 06/17/2023 10:36:41 Essential hypertension 42616426 I10 stable thus far with current meds bp has been stable at home no issues he will cut the moexpril in half so he is taking 7.5mg tablet Type 2 travis betes mellitus 55756032 E11.9 a1c is pending last value was 6.8 and is stable 7.6 was 6.9 still and prior was 6.8 excellent rechk in 3-4 mo warned a1c levels and he will cont to improve his dietmicroa lbumin is negative and doing well Peripheral vascular disease 672361110 I73.9 will be calling vas surg for follow up appt later this year await call for appt [id number] Jeffrey Oliveira [facility] [address] [facility],[place] [address] 09/02/2023 08:16:25 09/02/2023 15:14:19 Essential hypertension 02558502 I10 stable thus far with current meds bp has been stable at home no issues he will cut the moexpril in half so he is taking 7.5mg tablet Type 2 travis betes mellitus 31001290 E11.9 a1c is now 7.7 rechk in 3-4 mo warned a1c levels and he will cont to improve his dietmicroa lbumin is negative and doing well Asthma 134452167 J45.90 9 has had issue early this summer Peripheral vascular disease 008500789 I73.9 still smoking unfortunat hernán seeing surg for AAA Abdominal aortic aneurysm 475046056 I71.40 size increased from 4.5 he will be seeing surgeon after the holidays to assess for poss surg repaircta is pending Multiple n odules of lung 436529257 R91.8 will need to have a follow u p ct chest rec [id number] Jeffrey Oliveira [facility] [address] [facility],[place] [address] 11/24/2023 14:27:14 11/24/2023 15:32:02 Abdominal aortic aneurysm 705842241 I71.40 size increased from 4.5 he will be seeing surgeon after the holidays to assess for poss surg repaircta is pending Essential hypertension 74464201 I10 stable thus far with current meds bp has been stable at home no issues he will cut the moexpril in half so he is taking 7.5mg tablet Type 2 travis betes mellitus 94860635 E11.9 a1c is pending rechk in 3-4 mo warned a1c levels and he will cont to improve his dietmicroa lbumin is negative and doing well Asthma 321039647 J45.90 9 has had issue early this summer Chronic ob structive pulmonary disease 09861050 J44.9 here for rechk Congestive heart failure 52419282 I50.9 breathing is ok relates not pushing things 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 will begin bcg tx Furuncle 593554528 L02.9 2 [id number] Jeffrey Oliveira [facility] [address] [facility],[place] [address] 03/12/2024 14:29:40 03/12/2024 16:06:56 Depression screening 280035254 Z13.31 stable 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 57553129 C67.5 will begin bcg tx soon had bladder neck surg last and mitomycin inj and did very wellhad cath removed todaywe will look to do a PET scan after bcg treatments at next visit Congestive heart failure 46597637 I50.9 breathing is ok relates not pushing things Essential hypertension 46316760 I10 stable thus far with current meds bp has been stable at home no issues he will cut the moexpril in half so he is taking 7.5mg tablet Type 2 travis betes mellitus 68822670 E11.9 a1c is 7.9 was 8.1 in october doing well despite major surgery rechk in 3-4 mo warned a1c levels and he will cont to improve his dietmicroa lbumin is negative and doing well Abdominal aortic aneurysm 316487471 I71.40 size increased from 4.5 he will be seeing surgeon after the holidays to assess for poss surg repaircta is pending next Chronic ob structive pulmonary disease 92996510 J44.9 here for rechk [id number] Jeffrey Oliveira [facility] [address] [facility],[place] [address] 05/25/2024 09:30:09 05/25/2024 14:56:01 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 Type 2 travis betes mellitus 95670203 E11.9 [id number] Jeffrey Oliveira [facility] [address] [facility], [place] [address] 08/18/2024 10:49:52 08/18/2024 11:35:32 Type 2 diabetes mellitus 65734131 E11.9 a1c is pending a1c is 7.9 was 8.1 in october doing well despite major surgery rechk in 3-4 mo warned a1c levels and he will cont to improve his dietmicroa lbumin is negative and doing well Essential hypertension 46001337 I10 stable thus far with current meds bp has been stable at home no issues he will cut the moexpril in half so he is taking 7.5mg tablet Congestive heart failure 05748679 I50.9 breathing is ok relates not pushing things Eczema 00814939 L30.9 here for tx will try the halobetaso l Chronic re current sinusitis 266157416 J32.9 given persistanc e of severe symptoms and hx of congenital osteomeata l complex narrowing we will do a ct of the sinuses [id number] Jeffrey Oliveira [facility] [address] [facility],[place] [address] 11/02/2024 13:56:51 11/02/2024 16:14:19 Depression screening 502897278 Z13.31 stable Type 2 travis betes mellitus 37664917 E11.9 a1c is 8.2 was 8.2 a1c is 7.9 was 8.1 in october doing well despite major surgery rechk in 3-4 mo warned a1c levels and he will cont to improve his dietmicroa lbumin is negative and doing well Chronic ob structive pulmonary disease 08741507 J44.9 here for rechk Essential hypertension 34513572 I10 stable thus far with current meds bp has been stable at home no issues he will cut the moexpril in half so he is taking 7.5mg tablet 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 75077596 C67.5 will begin bcg tx soon had bladder neck surg last and mitomycin inj and did very wellhad cath removed todaywe will look to do a PET scan after bcg treatments at next visit Peripheral vascular disease 557577100 I73.9 still smoking unfortunat hernán seeing surg for AAA Congestive heart failure 94063388 I50.9 breathing is ok relates not pushing things Frostbite of toe of left foot 7029096729 8183638 T33.832A [id number] Jeffrey Oliveira, [facility] [address] [facility],[place] [facility] [place] [address] 11/26/2024 15:00:43 11/26/2024 16:06:32 Multiple nodules of lung 501013892 R91.8 will set up with CT chest for recheck pulm nodules 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 Irving to have him check in Impaired f asting glycemia 005183317 R73.01 will recheck his levels after hospital d/c Health Concerns Section Related Observation LastModified by Organization Detai ls LastModified Time None Recorded Concern Status LastModified by Organization Details LastModified Time None Recorded Advance Directives Directive None Recorded Payers Insurance Date Sequence Insurance Name Policy Number Policy Mora Covered Member ID Mora Member ID Guarantor Name 02/19/2025 2 [place] [id number] Dioni Galvez [id number] Dioni Galvez 02/19/2025 1 [place] 3 Dioni Galvez [id number] Dioni Galvez Notes Date Note Type Note Provider Name and Address Organization Details Recorded Time 4 text/htm l Care Management - DiabetesReported bypatient.Self Care:seeing eye doctor yearly for dilated eye exam; checking feet regularly; normal range of home blood sugars (in the low 100s); no side effects from medications Associated Symptoms:symptoms are usually well controlled; no fatigue; no dizziness; no excessive sweating; no headaches; no confusion; no increased thirst; no increased appetite; no increased urination; no blurred vision; no numbness of feet; no calluses on feet here since surgery for bladder cahas done well overallrelates that he is doing good overall Jeffrey Oliveira DO [address] [place], [address], [facility] 03/12/2024 15:03:42 4 text/htm l 2 mo f/u The patient is participating in this appointment via telemedicine communication with a phone call/video calling service ([employer])The patient consents to use of these platforms in place of an in-person appointment due to either sick symptoms the patient is presenting with or current office closure due to COVID exposure in order to keep our office staff and patients safe patient will be starting BCG insertions for six weeks in pathology report is negative for cancer asthma: stable with the Breo, works well for patient otherwise doing really wellorders up-to-date PAUL GREGG [address] [place], [address], [facility] 05/25/2024 14:46:05 4 text/htm l Care Management - DiabetesReported bypatient.Self Care:seeing eye doctor yearly for dilated eye exam; checking feet regularly; normal range of home blood sugars (in the low 100s); no side effects from medications Associated Symptoms:symptoms are usually well controlled; no fatigue; no dizziness; no excessive sweating; no headaches; no confusion; no increased thirst; no increased appetite; no increased urination; no blurred vision; no numbness of feet; no calluses on feetCare Management - HypertensionReported bypatient.Self Care:not under emotional stress Severity:symptoms are improving; does not interfere with daily activities Associated Symptoms:no dizziness; no lightheadedness; no chest pain; no shortness of breath; no palpitations; no edema; no calf muscle cramps; no blurred vision; no confusion; no headaches; no fatigue here for rechk and is doing okbreathing is ok occ winded with long walks in winterhas used inhaler couple times with good [id number] is 7.9 in septfinished bcg treatments and has done follow up urines for urologybps are good at home Jeffrey Oliveira, DO [address] [facility], [place], [address], [facility] 08/18/2024 11:28:09 5 text/htm l Care Management - DiabetesReported bypatient.Self Care:seeing eye doctor yearly for dilated eye exam; checking feet regularly; normal range of home blood sugars (in the low 100s); no side effects from medications Associated Symptoms:symptoms are usually well controlled; no fatigue; no dizziness; no excessive sweating; no headaches; no confusion; no increased thirst; no increased appetite; no increased urination; no blurred vision; no numbness of feet; no calluses on feetNotes:started new round of bcg treatment for only 3 weeks this time urol pleased with his prgoress and once done he is free for 3 monthsCare Management - HypertensionReported bypatient.Self Care:not under emotional stress Severity:symptoms are improving; does not interfere with daily activities Associated Symptoms:no dizziness; no lightheadedness; no chest pain; no shortness of breath; no palpitations; no edema; no calf muscle cramps; no blurred vision; no confusion; no headaches; no fatigue here for rechk and is doing ok overallrelates that he is feeling well except for the sinusesrelates that using meds and sinus sprays are helpful but sx continue unabated Jeffrey Oliveira DO [address] [place], [address], [facility] 11/02/2024 14:25:57 5 text/htm [facility] d/c the patient reports that he was admitted for emergency surgery on GI floor for active bleeding diverticulitis the patient is doing okay, no GI symptomsthe patient has f/u with GI and they cleared him the patient reports that he is doing okaysome blood still, but has f/u colonoscopy the patient reports incidental pulm nodules, recommended f/u CT from report, due this month, order added will set up with a CT recheck from incidental findings and possible obstructionurology is aware PAUL GREGG [address] [place], [address], [facility] 11/26/2024 15:55:10
[2025-02-22 13:20] LABS: Estimated Average Glucose 169 mg/dL; Hemoglobin A1c % 7.5 % (<6.0)
== END 2025-02-22 08:09 | disposition home or self-care (01) ==
LOC: HO.MANLDS 08:08
PROVIDERS: Visit Provider Internal Medicine
DX: E11.9 Type 2 diabetes mellitus without complications (principal)
CPT/HCPCS: 36415; 83036

== ENCOUNTER 2025-05-25 07:34 | Outpatient (REF) | payer MEDICARE, SELFPAY ==
--- OUTSIDE RECORDS SUMMARY | 2025-05-25 07:38 | XMS_ITS | Encounter Summary ---
Author Organization [facility] Address [address] [place] [address] Phone Care Team Providers Care Tobacco Sweeper Name Role Phone Jeffrey Ross DO Primary Care Provider [phone] Jeffrey Ross DO Primary Care Provider [phone] Encounter Details Date Type Department Care Team (Late st Contact Info) Description 05/06/2018 Ancillary Orders Virtual Department [address] [place] [address] Jeffrey Ross DO [address] [facility] [place] [address] [email or web address] Social History Tobacco Use Types Packs/Day Years Used Date Smoking Tobacco: Never Assessed Sex and Gender Information Value Date Recorded Sex Assigned at Male 08/09/2019 11:27 AM EST Legal Sex Male 10:07 PM EDT Gender Identity Male 08/09/2019 11:27 AM EST Sexual Orientation Straight 08/09/2019 11 :27 AM EST documented as of this encounter Plan of Treatment Not on file documented as of this encounter Visit Diagnoses Not on filedocumented in this encounter Additional Health Concerns Infection Onset Date Last Indicated Resolved Time CDiff-Risk 11/16/2024 11/16/2024 11/16/2024 11:0 0 PM EDT documented as of this encounter Care Teams Tobacco Sweeper Relationship Specialty Start Date End Date Jeffrey Ross DO [email or web address] PCP - General Internal Medicine 03/26/18 11/15/24 Jeffrey Ross DO [address] [place] [address] [email or web address] PCP - General Internal Medicine 11/16/24 documented as of this encounter Additional Source Comments The information contained in this document represents components of the legal health record. It is not the complete legal health record.[facility]
--- OUTSIDE RECORDS SUMMARY | 2025-05-25 07:38 | XMS_ITS | Encounter Summary ---
Author Organization [facility] Address [address] [place] [address] Phone Care Team Providers Care Reagent Tender Helper Name Role Phone Jeffrey Ross DO Primary Care Provider [phone] Jeffrey Ross DO Primary Care Provider [phone] Encounter Details Date Type Department Care Team (Late st Contact Info) Description 05/06/2018 Ancillary Orders Virtual Department [address] [place] [address] Jeffrey Ross DO [address] [facility] [place] [address] [email or web address] Social History Tobacco Use Types Packs/Day Years [...] documented as of this encounter Care Teams Reagent Tender Helper Relationship Specialty Start Date End Date Jeffrey Ross DO [email or web address] PCP - General Internal Medicine 03/26/18 11/15/24 Jeffrey Ross DO [address] [place] [address] PCP - General Internal Medicine 11/16/24 documented as of this encounter Additional Source Comments The information contained in this document represents components of the legal health record. It is not the complete legal health record.[facility]
--- OUTSIDE RECORDS SUMMARY | 2025-05-25 07:38 | XMS_ITS | Encounter Summary ---
Author Organization [facility] Address [address] [place] [address] Phone Care Team Providers Care Electrical Controls Engineer Name Role Phone Jeffrey Ross Primary Care Provider [phone] NoelJeffrey linder Primary Care Provider [phone] Encounter Details Date Type Department Care Team (Late st Contact Info) Description 10/07/2023 Procedure Pass [place] Admitting Dept - Virtual Department [address] [place] [address] Social History Tobacco Use Types Packs/Day Years Used Date Smoking Tobacco: Every Day Cigarettes Smokeless Tobacco: Never Comments:since age 18 Alcohol Use Standard Drinks/Week Comments Yes 0 (1 standard drink = 0.6 oz pur e alcohol) rare Education Answer Date Recorded Are you interested in more education? Not on cheo e 12/27/2022 Are you concerned about learning? Not on file 12/27/2022 No 12/27/2022 No 12/27/2022 Digital Access Answer Date Recorded No 01/25/2023 No 01/25/2023 Reliable internet access at home? Not on file 01/25/2023 Device with a working camera? Not on file Sex and Gender Information Value Date Recorded Sex Assigned at Male 08/09/2019 11:27 AM EST Legal Sex Male 10:07 PM EDT Gender Identity Male 08/09/2019 11:27 AM EST Sexual Orientation Straight 08/09/2019 11 :27 AM EST documented as of this encounter Functional Status * Calculated C-SSRS Risk Score (Lifetime/Recent) Answer Date of Assessment Author No Risk Indicated 10/07/2023 7:44 PM Melissa Allison RN * [place] Suicide Severity Rating Scale (Screener/Recent Self-Report) Question Answer Date of Assessment Author 1. Wish to be (Past 1 Month) No 024 7:44 PM Melissa Allison RN 2. Non-Specific Active Suici prabhakar Thoughts (Past 1 Month) No 10/07/2023 7:44 PM Elizabeth Allison RN 6. Suicidal Behavior (Lifetime) No 7:44 PM Melissa Allison RN documented as of this encounter Plan of Treatment Not on file documented as of this encounter Visit Diagnoses Not on filedocumented in this encounter Additional Health Concerns Infection Onset Date Last Indicated Resolved Time CDiff-Risk 11/16/2024 11/16/2024 11/16/2024 11:0 0 PM EDT documented as of this encounter Care Teams Electrical Controls Engineer Relationship Specialty Start Date End Date Jeffrey Ross DO PCP - General Internal Medicine 03/26/18 11/15/24 Jeffrey Ross DO [address] [place] [address] PCP - General Internal Medicine 11/16/24 documented as of this encounter Additional Source Comments The information contained in this document represents components of the legal health record. It is not the complete legal health record.[facility]
--- OUTSIDE RECORDS SUMMARY | 2025-05-25 07:38 | XMS_ITS | Encounter Summary ---
Author Organization [facility] Address [address] [facility] [address] [facility] [address] [place] [address] Phone Care Team Providers Care Sales Clerk Name Role Phone Jeffrey Ross DO Primary Care Provider [phone] Jeffrey Ross DO Primary Care Provider [phone] Reason for Referral * MRI/CAT Scan - Closed Specialty Diagnoses / Procedures Referred By Pietro ryan Referred To Contact Radiology Diagnoses Chronic sinusitis, unspecified location Procedures CT Face Jeffrey Ross DO Phone: tel: fax: [email or web address] Referral ID Status Reason Start Date Expiration Date Visits Re quested Visits Authorized [id number] Closed 08/18/2024 08/18/2025 1 1 Encounter Details Date Type Department Care Team (Late st Contact Info) Description 08/18/2024 Transcribe Orders Virtual Department [address] [place] [address] Jeffrey Ross DO [address] [facility] [place] [address] [email or web address] Chronic sinusitis, unspecified location (Primary Dx) Social History Tobacco Use Types Packs/Day Years Used Date Smoking Tobacco: Every Day Cigarettes Smokeless Tobacco: Never Comments:since age 18 Alcohol Use Standard Drinks/Week Comments Yes 0 (1 standard drink = 0.6 oz pur e alcohol) 1 a month Education Answer Date Recorded Are you interested in more education? Not on cheo e 12/27/2022 Are you concerned about learning? Not on file 12/27/2022 No 12/27/2022 No 12/27/2022 Digital Access Answer Date Recorded No 01/25/2023 No 01/25/2023 Reliable internet access at home? Not on file 01/25/2023 Device with a working camera? Not on file Intimate Partner Violence Answer Date R ecorded Are you denied basic needs s uch as food, clothing, or medical care? No 03/10/2024 In the past 12 months have y ou been in a relationship with a person who hurts, threatens, or tries to control you? No 03/10/2024 Are you denied basic needs s uch as food, clothing, or medical care? No 03/10/2024 In the past 12 months have y ou been in a relationship with a person who hurts, threatens, or tries to control you? No 03/10/2024 Sex and Gender Information Value Date Recorded Sex Assigned at Male 08/09/2019 11:27 AM EST Legal Sex Male 10:07 PM EDT Gender Identity Male 08/09/2019 11:27 AM EST Sexual Orientation Straight 08/09/2019 11 :27 AM EST documented as of this encounter Plan of Treatment Not on file documented as of this encounter Results * CT FACE (SINUS) WITHOUT CONTRAST (08/28/2024 10:34 AM EST) Anatomical Region Laterality Modality Face Computed Tomogra phy 08/31/2024 10:3 2 AM EST Impressions 08/31/2024 10:40 AM EST Moderate to severe mucosal thickening the left maxillary sinus with surrounding hyperostosis is noted. The degree of mucosal thickening is worse when compared to August 2022. Remainder of the paranasal sinuses demonstrate mild mucosal thickening. Narrative 08/31/2024 10:[address] FACE (SINUS) WITHOUT CONTRAST Referring clinician's provided indication for this examination in Epic: * Sinusitis, chronic or recurrent (Ped 0-18y); chronic sinusitis TECHNIQUE: Multidetector-row CT of the sinuses was performed without intravenous contrast using tailored dose modulation techniques. Images were reconstructed in the axial, coronal, and sagittal planes. COMPARISON: CT FACE (SINUS) WITHOUT CONTRAST FINDINGS: Frontal sinuses and frontoethmoidal junctions: Trace mucosal thickening. Anterior and posterior ethmoid air cells: Mild mucosal thickening. Maxillary sinuses and infundibula: Moderate to severe mucosal thickening in the left maxillary sinus with surrounding hyperostosis is noted. The left infundibulum is partially effaced by mucosal thickening. Mild mucosal thickening in the right maxillary sinus with patent infundibulum. Sphenoid sinuses and sphenoethmoidal recesses: Mild mucosal thickening with partial effacement of the right sphenoethmoidal recess. Nasal cavity: Mild leftward nasal septal deviation with bony spur. Surgical anatomy: Ostiomeatal units: Intact. Infundibula: Bordered laterally and superiorly by orbital vazquez;ethmoid air cells. Onodi air cells or infraorbital air cells: [place]odi air cell is present on the left. Laminae papyracea: Intact. Ethmoid roofs and cribriform plates: Symmetric. Optic canals and carotid canals: The sphenoid septum inserts along the anteromedial wall of the carotid canal Imaged maxillary teeth: Periapical lucencies are seen around the roots of left maxillary molar. Mastoid air cells and middle ear cavities: Clear. Temporomandibular joints: No significant degenerative remodeling. Brain: Images of the brain parenchyma are not of diagnostic quality for the soft tissues. No focal abnormality is visible with this technique. Orbits and globes: No abnormality. Procedure Note Benson Craig MD - 08/31/2024 CT FACE (SINUS) WITHOUT CONTRAST Referring clinician's provided indication for this examination in Epic: *Sinusitis, chronic or recurrent (Ped 0-18y); chronic sinusitis TECHNIQUE: Multidetector-row CT of the sinuses was performed withoutintravenous contrast using tailored dose modulation techniques. Imageswere reconstructed in the axial, coronal, and sagittal planes. COMPARISON: CT FACE (SINUS) WITHOUT CONTRAST FINDINGS: Frontal sinuses and frontoethmoidal junctions: Trace mucosal thickening. Anterior and posterior ethmoid air cells: Mild mucosal thickening. Maxillary sinuses and infundibula: Moderate to severe mucosal thickeningin the left maxillary sinus with surrounding hyperostosis is noted. Theleft infundibulum is partially effaced by mucosal thickening. Mild mucosalthickening in the right maxillary sinus with patent infundibulum. Sphenoid sinuses and sphenoethmoidal recesses: Mild mucosal thickeningwith partial effacement of the right sphenoethmoidal recess. Nasal cavity: Mild leftward nasal septal deviation with bony spur. Surgical anatomy: Ostiomeatal units: Intact. Infundibula: Bordered laterally and superiorly by orbital vazquez;ethmoidair cells. [place]odi air cells or infraorbital air cells: Onodi air cell is present onthe left. Laminae papyracea: Intact. Ethmoid roofs and cribriform plates: Symmetric. Optic canals and carotid canals: The sphenoid septum inserts along theanteromedial wall of the carotid canal Imaged maxillary teeth: Periapical lucencies are seen around the roots ofleft maxillary molar. Mastoid air cells and middle ear cavities: Clear. Temporomandibular joints: No significant degenerative remodeling. Brain: Images of the brain parenchyma are not of diagnostic quality forthe soft tissues. No focal abnormality is visible with this technique. Orbits and globes: No abnormality. IMPRESSION: Moderate to severe mucosal thickening the left maxillary sinus withsurrounding hyperostosis is noted. The degree of mucosal thickening isworse when compared to August 2022. Remainder of the paranasal sinusesdemonstrate mild mucosal thickening. Jeffrey Ross DO IMG CT HEAD/NECK Final Result documented in this encounter Visit Diagnoses Diagnosis Chronic sinusitis, unspecified location- Primary Chronic sinusitis, unspecified location documented in this encounter Additional Health Concerns Infection Onset Date Last Indicated Resolved Time CDiff-Risk 11/16/2024 11/16/2024 11/16/2024 11:0 0 PM EDT documented as of this encounter Care Teams Sales Clerk Relationship Specialty Start Date End Date Jeffrey Ross DO PCP - General Internal Medicine 03/26/18 11/15/24 Jeffrey Ross DO [address] [place] [address] [email or web address] PCP - General Internal Medicine 11/16/24 documented as of this encounter Additional Source Comments The information contained in this document represents components of the legal health record. It is not the complete legal health record.[facility]
--- OUTSIDE RECORDS SUMMARY | 2025-05-25 07:38 | XMS_ITS | Encounter Summary ---
Author Organization [facility] Address [address] [place] [address] Phone Care Team Providers Care Sludge Filtration Operator Name Role Phone Jeffrey Ross Primary Care Provider [phone] NoelJeffrey linder DO Primary Care Provider [phone] Encounter Details Date Type Department Care Team (Late st Contact Info) Description 08/18/2024 Procedure Pass [facility], Ct Scan - [facility] [address] [place] [address] Social History Tobacco Use Types Packs/Day Years [...] documented as of this encounter Care Teams Sludge Filtration Operator Relationship Specialty Start Date End Date Jeffrey Ross DO PCP - General Internal Medicine 03/26/18 11/15/24 Jeffrey Ross DO [address] [place] [address] PCP - General Internal Medicine 11/16/24 documented as of this encounter Additional Source Comments The information contained in this document represents components of the legal health record. It is not the complete legal health record.[facility]
--- OUTSIDE RECORDS SUMMARY | 2025-05-25 07:38 | XMS_ITS | Encounter Summary ---
Author Organization [facility] Address [address] [place] [address] Phone Care Team Providers Care Horse Doctor Name Role Phone Jeffrey Ross Primary Care Provider [phone] NoelJeffrey linder DO Primary Care Provider [phone] Encounter Details Date Type Department Care Team (Late st Contact Info) Description 03/10/2024 Procedure Pass [place] Admitting Dept - Virtual Department [address] [place] [address] Social History Tobacco Use Types Packs/Day Years [...] Date of Assessment Author No Risk Indicated 03/10/2024 8:00 PM EDT Silvia More RN * [place] Suicide Severity Rating Scale (Screener/Recent Self-Report) Question Answer Date of Assessment Author 1. Wish to be (Past 1 Month) No 024 8:00 PM EDT Silvia More RN 2. Non-Specific Active Suici prabhakar Thoughts (Past 1 Month) No 03/10/2024 8:00 PM EDT Silvia More RN 6. Suicidal Behavior (Lifetime) No 8:00 PM EDT Silvia More RN documented as of this encounter Plan of Treatment Not on file documented as of this encounter Visit Diagnoses Not on filedocumented in this encounter Additional Health Concerns Infection Onset Date Last Indicated Resolved Time CDiff-Risk 11/16/2024 11/16/2024 11/16/2024 11:0 0 PM EDT documented as of this encounter Care Teams Horse Doctor Relationship Specialty Start Date End Date Jeffrey Ross DO PCP - General Internal Medicine 03/26/18 11/15/24 Jeffrey Ross DO [address] [place] [address] PCP - General Internal Medicine 11/16/24 documented as of this encounter Additional Source Comments The information contained in this document represents components of the legal health record. It is not the complete legal health record.[facility]
--- OUTSIDE RECORDS SUMMARY | 2025-05-25 07:38 | XMS_ITS | Encounter Summary ---
Author Organization [facility] Address [address] [place] [address] Phone Care Team Providers Care Apple Packing Header Name Role Phone Jeffrey Ross Primary Care Provider [phone] NoelJeffrey linder DO Primary Care Provider [phone] Encounter Details Date Type Department Care Team (Late st Contact Info) Description 05/04/2024 Procedure Pass [place] Admitting Dept - Virtual Department [address] [place] [address] Social History Tobacco Use Types Packs/Day Years [...] documented as of this encounter Care Teams Apple Packing Header Relationship Specialty Start Date End Date Jeffrey Ross DO [email or web address] PCP - General Internal Medicine 03/26/18 11/15/24 Jeffrey Ross DO [address] [place] [address] [email or web address] PCP - General Internal Medicine 11/16/24 documented as of this encounter Additional Source Comments The information contained in this document represents components of the legal health record. It is not the complete legal health record.[facility]
--- OUTSIDE RECORDS SUMMARY | 2025-05-25 07:39 | XMS_ITS | Clinical Summary ---
Author Organization [facility] Address [address] [facility] [address] [place] [address] Phone Care Team Providers Care Butane Compressor Operator Name Role Phone Duong Oliveira Primary Care Provider [phone] Allergies Active Allergy Reactions Criticality Noted Date Comments Sulfa (Sulfonamide Antibiotics) Nausea Only 03/03/2024 Sulfamethoxazole-Trimetho prim Nausea Only 03/03/2024 Denies this is an allergy (2024) Medications lovastatin (MEVACOR) 10 MG tablet lovastatin 10 mg tablet 1 Active multivit with minerals/lutein (MULTIVITAMIN 50 PLUS ORAL) Take by mouth daily. Active fluticasone propionate (FLONASE) 50 mcg/actuation nasal spray fluticasone 50 mcg/actuation nasal spray,suspension Active albuterol 90 mcg/actuation inhaler ProAir HFA 2 puffs every 4 hours prn Active fexofenadine-ps eudoephedrine (EMMANUEL-D) 60-120 mg per tablet Take 1 tablet by mouth every other day. Active benazepril (LOTENSIN) 10 MG tablet Take 10 mg by mouth daily. Active fluticasone furoate-vilante roL (BREO ELLIPTA) 200-25 mcg/dose inhaler Inhale 1 puff into the lungs daily. Active acetaminophen (TYLENOL) 325 mg tablet Take 2 tablets (650 mg total) by mouth every 6 (six) hours as needed. Active alfuzosin (UROXATRAL) 10 mg 24 hr tablet Take 10 mg by mouth daily. Active terbinafine HCL (LAMISIL) 250 mg tablet Take 1 tablet every day by oral route for 30 days. 5 Active triamcinolone acetonide 0.1 % cream Apply topically 2 (two) times a day for 14 days. 30 g 5 Active azelastine (ASTELIN) 137 mcg (0.1 %) nasal spray 2 sprays by Nasal route 2 (two) times a day. 5 Active doxycycline hyclate (DORYX) 100 MG tablet Take 100 mg by mouth 2 (two) times a day. Active cetirizine (ZYRTEC) 10 MG tablet Take 10 mg by mouth daily. Active methylPREDNISol one (MEDROL DOSEPACK) 4 mg tablet Take 1 dose pk by oral route for 6 days. 5 Active Active Problems Problem Noted Date Diagnosed Date GI bleed 11/17/2024 Assessment & Plan (11/18/2024 12:25 PM EDT): -Patient presented with several episodes of BRBPR. Colonoscopy today with diverticular bleed clipped Plan diet advanced to clear liquids, follow hemoglobin Assessment & Plan (11/17/2024 3:56 PM EDT): -Patient was seen in the ED yesterday 11/16 after 3 episodes of BRBPR. At that time his hemoglobin was 14.3, CT abdomen/pelvis showed diverticulosis. He was discharged home and instructed to return if bleeding continued which it did this morning -Repeat hemoglobin today is 13.8 -He has been seen by GI and is planned for colonoscopy tomorrow -Clear liquid diet today, n.p.o. after midnight -Bowel prep today Asthma 11/17/2024 Assessment & Plan (11/18/2024 12:29 PM EDT): -Currently no shortness of breath or wheezing, Breo elliptica is nonformulary and switched to Advair Assessment & Plan (11/17/2024 3:56 PM EDT): -Currently no shortness of breath or wheezing, Breo elliptica is nonformulary and switched to Advair Abnormal CT of the abdomen 11/17/2024 Assessment & Plan (11/18/2024 12:25 PM EDT): -Known AAA seen, patient follows with vascular for this -1.9 cm hypodensity in the left hepatic lobe is incompletely characterized, may represent a hemangioma. Rad report saidConsider further evaluation with nonemergent right upper quadrant ultrasound/MRI. Assessment & Plan (11/17/2024 3:56 PM EDT): -Known AAA seen, patient follows with vascular for this -1.9 cm hypodensity in the left hepatic lobe is incompletely characterized, may represent a meningioma. Consider further evaluation with nonemergent right upper quadrant ultrasound/MRI. Postoperative nausea 03/10/2024 Assessment & Plan (03/10/2024 8:14 PM EDT): Responding well to ondansetron. Abdominal exam is reassuring. No concerning neurologic symptoms. Continue ondansetron as needed for nausea/vomiting. Diet as tolerated when nausea has improved. Hypertension 03/10/2024 Assessment & Plan (11/18/2024 12:25 PM EDT): -Blood pressure is mildly elevated, benazepril is nonformulary and switched to lisinopril Assessment & Plan (11/17/2024 3:56 PM EDT): -Blood pressure is mildly elevated, benazepril is nonformulary and has been switched to lisinopril Assessment & Plan (03/10/2024 8:19 PM EDT): Has held his home antihypertensives for several days. Pain is in good control. Will resume his home benzopril, patient prefers to start it in the morning, which is consistent with his usual medication dosing schedule. Continue to monitor his blood pressure and control and pain/nausea. 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 Postoperative care per Dr. Irving and urology. He has a keller catheter in place, which is to stay in place upon discharge for removal by urology as an outpatient. 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 Peripheral vascular disease 01/19/2018 Tobacco user 01/19/2018 Assessment & Plan (11/18/2024 12:29 PM EDT): -Smoking cessation advised, nicotine patch ordered Assessment & Plan (11/17/2024 3:56 PM EDT): -Smoking cessation advised, nicotine patch ordered Encounter for preoperative s creening laboratory testing for COVID-19 virus Encounters Date Type Department Care Team Description 05/18/2025 9:45 AM EDT - 05/18/2025 10:00 AM EDT Surgery [facility] Admitting Dept Virtual Department [address] [place] [address] Chip Machado MD COLONOSCOPY 05/18/2025 9:24 AM EDT Anesthesia Event [facility] Admitting Dept Virtual Department [address] [place] [address] Jamee Pathak MD 05/18/2025 8:27 AM EDT - 05/18/2025 10:30 AM EDT Hospital Encounter [facility] Admitting [facility] Virtual Department [address] [place] [address] Chip Machado MD Discharge Disposition: Home or Self Care 05/18/2025 Procedure Pass [facility] Admitting Dept Virtual Department [address] [place] [address] 05/12/2025 9:30 AM EDT Pre-Admission Testing Pre Procedure Evaluation [address] [place] [address] Chip Machado MD 05/10/2025 10:20 AM EDT Office Visit [facility] at [address] [address] Jamee Wei NP Rash and other nonspecific skin eruption (Primary Dx) from Last 3 Months Immunizations Immunization Administration Dates Next Due Tdap 11/18/2018 Social History Tobacco Use Types Packs/Day Years Used Date Smoking Tobacco: Every Day Cigarettes 0.3 65.7 Started: 1958 Smokeless Tobacco: Never Tobacco Cessation:Ready to Q uit: Not Asked; Counseling Given: Not Answered Alcohol Use Standard Drinks/Week Comments Yes 0 (1 standard drink = 0.6 oz pur e alcohol) 0-1 a month Education Answer Date Recorded Are you interested in more education? Not on cheo e 12/27/2022 Are you concerned about learning? Not on file 12/27/2022 No 12/27/2022 No 12/27/2022 Food Answer Date Recorded Within the past 6 months we worried whether our food would run out before we got money to buy more. Never True 11/18/2024 Within the past 6 months the food we bought just didn't last and we didn't have enough money to get more. Never True Residential Stability Answer Date Recor ded What is your housing situation today? I have catie sing 11/18/2024 How many times have you move d in the past 12 months? Zero (I did not move) 11/18/2024 Paying for Meds Answer Date Recorded Do you have trouble paying for medicines? No 11/18/2024 Paying Utility Bills Answer Date Record ed Do you have trouble paying your heating or elect ricity bill? No 11/18/2024 Transportation Answer Date Recorded Has the lack of transportati on kept you from medical appointments or from getting medications? No 11/18/2024 Digital Access Answer Date Recorded No 11/18/2024 Yes 11/18/2024 Do you have reliable internet access at home? Ye s 11/18/2024 Do you have a device (e.g., phone, tablet, computer) with a working camera? Yes 11/18/2024 Intimate Partner Violence Answer Date R ecorded Are you denied basic needs s uch as food, clothing, or medical care? No 05/18/2025 In the past 12 months have y ou been in a relationship with a person who hurts, threatens, or tries to control you? No 05/18/2025 Are you denied basic needs s uch as food, clothing, or medical care? No 05/18/2025 In the past 12 months have y ou been in a relationship with a person who hurts, threatens, or tries to control you? No 05/18/2025 Sex and Gender Information Value Date Recorded Sex Assigned at Male 08/09/2019 11:27 AM EST Legal Sex Male 10:07 PM EDT Gender Identity Male 08/09/2019 11:27 AM EST Sexual Orientation Straight 08/09/2019 11 :27 AM EST Last Filed Vital Signs Vital Sign Reading Time Taken Comments Blood Pressure 145/84 05/18/2025 10:02 AM EDT Pulse 64 05/18/2025 10:02 AM EDT Temperature 35.9 C (96.6 F) 05/18/2025 9:47 AM EDT Respiratory Rate 17 05/18/2025 10:02 AM EDT Oxygen Saturation 98% 05/18/2025 10:02 AM EDT Inhaled Oxygen Concentration - - Weight 73.5 kg (162 lb) 05/12/2025 2:50 PM EDT Height 170.2 cm (5' 7 ) 05/12/2025 2:50 PM EDT Body Mass Index 25.37 05/12/2025 2:50 PM EDT Plan of Treatment Health Maintenance Due Date Last Done Comments DEPRESSION SCREENING 1958 HEPATITIS C SCREENING 1964 LIPID PANEL 1964 ZOSTER VACCINES (1 of 2) 1965 DIABETIC EYE EXAM 03/16/2020 PNEUMOCOCCAL VACCINES (50+ years) (3 of 3 - PCV) 05/16/2021 05/16/2020, 07/03/2009 RSV VACCINE (1 - 1-dose 75+ series) 2021 HEMOGLOBIN A1C 01/22/2025 10/25/2024, 09/07/2024 BLOOD PRESSURE 11/07/2025 05/10/2025 CREATININE LEVEL 11/18/2025 11/18/2024, , 11/16/2024, Additional history exists POTASSIUM LEVEL 11/18/2025 11/18/2024, 10/30, 11/16/2024, Additional history exists SMOKING Hx and SMOKELESS TOBACCO SCREENING 05/18/2026 05/18/2025 Adult Td,Tdap Booster 09/04/2031 09/04/2021 , 09/01/2021, 11/18/2018 COVID-19 VACCINE Completed 05/11/2025, 03/2024, 06/05/2023, Additional history exists INFLUENZA VACCINE Completed 05/11/2025, , 05/21/2023, Additional history exists HEPATITIS A VACCINES Aged Out No long er eligible based on patient's age to complete this topic HIB VACCINES Aged Out No longer eligi ble based on patient's age to complete this topic MENINGOCOCCAL VACCINES (ACWY) Aged Out No longer eligible based on patient's age to complete this topic MENINGOCOCCAL VACCINES (B) Aged Out N o longer eligible based on patient's age to complete this topic Medical Devices Implanted Type Area House Carpenter Device Identifier Shelf Expiration Date Model / Serial / Lot Clip Hemostasis 16mm Cs/5ea - [id number] Implanted:Qty: 3 on 11/18/2024 by Chip Machado MD at [facility] Descending Colon [employer] [id number] / / Description:Diverticular ble ed at 52cm Procedures Procedure Name Priority Date/Time Associated Diagnosis Comments TN COLSC FLX W/RMVL OF TUMOR POLYP LESION SNARE TQ 05/18/2025 9:24 AM EDT COLON TN COLONOSCOPY W/BIOPSY SINGLE/MULTIPLE 05/18/2025 9:24 AM EDT COLON TN COLONOSCOPY FLX DX W/COLLJ SPEC WHEN PFRMD 05/18/2025 9:24 AM EDT COLON ENDOSCOPY, COLON 05/18/2025 9:22 AM EDT BASIC METABOLIC PANEL Routine 11/18/2024 4:17 AM EDT HEMOGLOBIN A1C Routine 10/25/2024 8:23 AM EST Type 2 diabetes mellitus without complication, unspecified whether rodent exterminator insulin use from Last 3 Months or Most Recently Relevant to Health Maintenance Results * ENDOSCOPY, COLON (05/18/2025 9:22 AM EDT) Narrative Transcriptions Chip Machado MD - 05/18/2025 9:22 AM EDT [facility] Patient Name: Dioni Galvez Attending MD:: CHIP MACHADO MD, Procedure Date: 05/18/2025 9:22 AM Date of : 1945 Age: 79 Admit Type: Outpatient Gender: Male Room: [place] [address] Referring MD: DUONG OLIVEIRA DO Exam Type: Colonoscopy Indications: High risk colon cancer surveillance: Personalhistory of colonic polyps 2007, Last colonoscopy within the past 6 months, Follow-up of diverticula Medications: Monitored Anesthesia Care Procedure: Informed consent was obtained from the patientafter discussion of the indications, limitations, alternatives, benefits, and risks of the procedure. Risks specifically discussed include but are not limited to medication reactions, missed lesions, bleeding, perforation, or the need for emergent surgery. Throughout the procedure, the patient's blood pressure, pulse, end-tidal CO2, and oxygensaturations were monitored continuously. The Olympus pediatric variable [id number] #6 was introduced through the anus and advanced tothe cecum, identified by the appendiceal orifice, ileocecal valve and palpation. The colonoscopy was performed without difficulty. The patient tolerated the procedure fairly well. The quality of the bowel preparation was evaluated using the BBPS (BostonBowel Preparation Scale) with scores of: Right Colon = 2 (minor amount of residual staining, small fragmentsof stool and/or opaque liquid, but mucosa seen well), Transverse Colon = 3 (entire mucosa seen well withno residual staining, small fragments of stool oropaque liquid) and Left Colon = 3 (entire mucosa seen well with no residual staining, small fragments of stoolor opaque liquid). The total BBPS score equals 8. The ileocecal valve, appendiceal orifice, and rectumwere photographed. Complications: No immediate complications. Estimated blood loss:None. Findings: The perianal and digital rectal examinations were normal. Pertinent negatives include normalsphincter tone. Multiple small and large-mouthed diverticula were found in the sigmoid colon and descending colon.There was no evidence of diverticular bleeding. Retroflexion in the right colon was performed. The exam was otherwise without abnormality ondirect and retroflexion views. Impression: - Moderate diverticulosis in the sigmoid colon andin the descending colon. There was no evidence of diverticular bleeding. - The examination was otherwise normal on directand retroflexion views. - No specimens collected. Recommendation: - No repeat colonoscopy due to age and the absence of colonicpolyps. CHIP MACHADO MD 05/18/2025 9:49:59 AM This report has been signed electronically. Number of Addenda: 0 Note Initiated On: 05/18/2025 9:22 AM Procedure Code(s): --- Professional --- G0105, Colorectal cancer screening; colonoscopy on individual at high risk --- Technical --- G0105, Colorectal cancer screening; colonoscopy on individual at high risk Diagnosis Code(s): --- Professional --- K57.30, Diverticulosis of large intestine without perforation or abscess without bleeding Z86.010, Personal history of colonic polyps --- Technical --- K57.30, Diverticulosis of large intestine without perforation or abscess without bleeding Z86.010, Personal history of colonic polyps CPT copyright 2021 [employer]. All rights reserved. The codes documented in this report are preliminary and upon aircraft rigging and controls mechanic reviewmay be revised to meet current compliance requirements. Procedure Date: 05/18/2025 9:22:[address] [place] [id number] us Duong A Bigda DO GI PROCEDURE ORDERABLES Final Re sult * (ABNORMAL) Basic metabolic panel (11/18/2024 4:17 AM EDT) SODIUM 141 133 - 146 mmol/L [facility] CHLORIDE 106 96 - 108 mmol/L [facility] POTASSIUM 3.7 3.3 - 5.1 mmol/L [facility] CO2 24 21 - 35 mmol/L [facility] BUN 12 6 - 19 mg/dL [facility] CREATININE 0.70 0.5 - 1.5 mg/dL [facility] GLUCOSE 153(H) 70 - 99 mg/dL [facility] CALCIUM 8.3(L) 8.4 - 10.3 mg/dL [facility] EGFR 95 >59 mL/min/1.7 3m2 [facility] Comment:Estimated glomerular filtration rate calculated using the CKD-EPI refit equation. ANION GAP 15 10 - 20 mmol/L [facility] Blood 11/18/2024 4:17 AM EDT 11/18/2024 5:03 AM EDT us Paige Staton DO LAB BLOOD ORDERABLES Final Re sult [facility] [address] [place] [address] * (ABNORMAL) Hemoglobin A1c (10/25/2024 8:23 AM EST) HEMOGLOBIN A1C 8.2(H) 4.3 - 5.8 % [facility] Blood 10/25/2024 8:23 AM EST 10/25/2024 8:25 AM EST us Duong A Bigda DO LAB BLOOD ORDERABLES Final Resul t [facility] [address] [place] [address] from Last 3 Months or Most Recently Relevant to Health Maintenance Insurance MEDICARE PART A & B [employer] MED[employer] SUPPLEMENT MEDICARE PART A & B [employer] MEDEX SUPPLEMENT MEDICARE PART A & B [employer] CROSS MEDEX SUPPLEMENT MEDICARE PART A & B [employer] CROSS MEDEX SUPPLEMENT MEDICARE PART A & B [employer] MEDEX SUPPLEMENT MEDICARE PART A & B [employer] CROSS MEDEX SUPPLEMENT MEDICARE PART A & B [employer] MEDEX SUPPLEMENT MEDICARE PART A & B [employer] MEDEX SUPPLEMENT MEDICARE PART A & B [employer] MEDEX SUPPLEMENT Advance Directives For more information, please contact: [phone] (9AM - 5PM [place], Friday-Friday) Documents on File Type Date Recorded Patient Stitcher Utility Expl anation Healthcare Proxy 10/07/2023 * Full Code (Latest Code Status on File) Date Activated Date Inactivated Comments 11/17/2024 3:18 PM Question Answer Comments Code Status Confirmed With: Patient * Full Code Date Activated Date Inactivated Comments 03/10/2024 7:46 PM 11/17/2024 3:18 PM Question Answer Comments Code Status Confirmed With: Patient Care Teams Butane Compressor Operator Relationship Specialty Start Date End Date Duong Oliveira DO [address] [place] [address] PCP - General Internal Medicine 11/16/24 Additional Source Comments The information contained in this document represents components of the legal health record. It is not the complete legal health record.[facility]
--- OUTSIDE RECORDS SUMMARY | 2025-05-25 07:39 | XMS_ITS | Encounter Summary ---
Author Organization [facility] Address [address] [place] [address] [place] [address] Phone Care Team Providers Care Correctional Officer Captain Name Role Phone Jeffrey Ross DO Primary Care Provider [phone] Jeffrey Ross DO Primary Care Provider [phone] Encounter Details Date Type Department Care Team (Late st Contact Info) Description 09/19/2021 Procedure Pass [place] Admitting Dept - Virtual Department [address] [place] [address] Social History Tobacco Use Types Packs/Day Years Used Date Smoking Tobacco: Every Day Cigarettes Smokeless Tobacco: Never Comments:since age 18 Alcohol Use Standard Drinks/Week Comments Yes 0 (1 standard drink = 0.6 oz pur e alcohol) rare Sex and Gender Information Value Date Recorded [...] documented as of this encounter Care Teams Correctional Officer Captain Relationship Specialty Start Date End Date Jeffrey Ross DO PCP - General Internal Medicine 03/26/18 11/15/24 Jeffrey Ross DO [address] [place] [address] [email or web address] PCP - General Internal Medicine 11/16/24 documented as of this encounter Additional Source Comments The information contained in this document represents components of the legal health record. It is not the complete legal health record.[facility]
--- OUTSIDE RECORDS SUMMARY | 2025-05-25 07:39 | XMS_ITS | Encounter Summary ---
Author Organization [facility] Address [address] [place] [address] Phone Care Team Providers Care Zipper Machine Operator Name Role Phone Jeffrey Ross Primary Care Provider [phone] Encounter Details Date Type Department Care Team (Late st Contact Info) Description 11/18/2024 Procedure Pass [facility] Admitting Dept Virtual Department [address] [place] [address] Social History Tobacco Use Types Packs/Day Years [...] as food, clothing, or medical care? No 11/17/2024 In the past 12 months have y ou been in a relationship with a person who hurts, threatens, or tries to control you? No 11/17/2024 Are you denied basic needs s uch as food, clothing, or medical care? No 11/17/2024 In the past 12 months have y ou been in a relationship with a person who hurts, threatens, or tries to control you? No 11/17/2024 Sex and Gender Information Value Date Recorded Sex Assigned at Male 08/09/2019 11:27 AM EST Legal Sex Male 10:07 PM EDT Gender Identity Male 08/09/2019 11:27 AM EST Sexual Orientation Straight 08/09/2019 11 :27 AM EST documented as of this encounter Plan of Treatment Not on file documented as of this encounter Visit Diagnoses Not on filedocumented in this encounter Care Teams Zipper Machine Operator Relationship Specialty Start Date End Date Jeffrey Ross DO [address] [place] [address] PCP - General Internal Medicine 11/16/24 documented as of this encounter Additional Source Comments The information contained in this document represents components of the legal health record. It is not the complete legal health record.[facility]
--- OUTSIDE RECORDS SUMMARY | 2025-05-25 07:39 | XMS_ITS | Encounter Summary ---
Author Organization [facility] Address [address] [place] [address] Phone Care Team Providers Care Vice President Quality Assurance Name Role Phone Jeffrey Ross Primary Care Provider [phone] Encounter Details Date Type Department Care Team (Late st Contact Info) Description 05/18/2025 Procedure Pass [facility] Admitting Dept Virtual Department [address] [place] [address] Social History Tobacco Use Types Packs/Day Years Used Date Smoking Tobacco: Every Day Cigarettes 0.3 65.7 Started: 1959 Smokeless Tobacco: Never Alcohol Use Standard Drinks/Week Comments Yes 0 [...] on filedocumented in this encounter Care Teams Vice President Quality Assurance Relationship Specialty Start Date End Date Jeffrye Ross DO [address] [place] [address] PCP - General Internal Medicine 11/16/24 documented as of this encounter Additional Source Comments The information contained in this document represents components of the legal health record. It is not the complete legal health record.[facility]
--- OUTSIDE RECORDS SUMMARY | 2025-05-25 07:39 | XMS_ITS | Encounter Summary ---
Author Organization [facility] Address [address] [facility] [address] [place] [phone] Phone Care Team Providers Care Piano Teacher Name Role Phone Jeffrey Ross DO Primary Care Provider [phone] Jeffrey Ross DO Primary Care Provider [phone] Encounter Details Date Type Department Care Team (Late st Contact Info) Description 08/15/2021 Transcribe Orders Virtual Department [address] [place] [address] Jeffrey Ross DO [address] [facility] [place] [address] Social History Tobacco Use Types Packs/Day Years Used Date Smoking Tobacco: Every Day Smokeless Tobacco: Never Alcohol Use Standard Drinks/Week [...] documented as of this encounter Care Teams Piano Teacher Relationship Specialty Start Date End Date Jeffrey Ross DO PCP - General Internal Medicine 03/26/18 11/15/24 Jeffrey Ross DO [address] [place] [id number] PCP - General Internal Medicine 11/16/24 documented as of this encounter Additional Source Comments The information contained in this document represents components of the legal health record. It is not the complete legal health record.[facility]
--- OUTSIDE RECORDS SUMMARY | 2025-05-25 07:39 | XMS_ITS | Encounter Summary ---
Author Organization [facility] Address [address] [facility] [address] [place] [address] Phone Care Team Providers Care Camera Supervisor Name Role Phone Jeffrey Ross DO Primary Care Provider [phone] Jeffrey Ross DO Primary Care Provider [phone] Encounter Details Date Type Department Care Team (Late st Contact Info) Description 05/06/2018 Procedure Pass [facility], [address] [address] Social History Tobacco Use Types Packs/Day Years [...] documented as of this encounter Care Teams Camera Supervisor Relationship Specialty Start Date End Date Jeffrey Ross DO PCP - General Internal Medicine 03/26/18 11/15/24 Jeffrey Ross DO [address] [place] [address] [email or web address] PCP - General Internal Medicine 11/16/24 documented as of this encounter Additional Source Comments The information contained in this document represents components of the legal health record. It is not the complete legal health record.[facility]
--- OUTSIDE RECORDS SUMMARY | 2025-05-25 07:39 | XMS_ITS | Encounter Summary ---
Author Organization [facility] Address [address] [place] [address] Phone Care Team Providers Care Occupational Therapy Aide Name Role Phone Unknown, Unknown MD Primary Care Provider Jeffrey Isidro DO Primary Care Provider [phone] Jeffrey Ross DO Primary Care Provider [phone] Reason for Referral * MRI/CAT Scan - Closed Specialty Diagnoses / Procedures Referred By Contac t Referred To Contact Procedures CT Chest Outside (No Interpretation) System, Provider Not In, PhD [employer] [address] Referral ID Status Reason Start Date Expiration Date Visits Re quested Visits Authorized [id number] Closed 03/24/2018 03/24/2019 1 1 Encounter Details Date Type Department Care Team (Late st Contact Info) Description 03/24/2018 Ancillary Orders [facility],Outside Imaging [address] [place] [address] System, Provider Not In, PhD [employer] [address] [place] [address] Social History Tobacco Use Types Packs/Day Years [...] as of this encounter Results * CT Chest Outside (No Interpretation) (01/16/2018 12:00 AM EDT) Narrative SYSTEMGENERATED, DOCUMENTATION - 03/24/2018 5:08 PM EDT This study is for PACS storage only and not for interpretation. us Provider Not In System PhD IMG OUTSIDE IMAGING W /OUT INTERPRETATION Final Result documented in this encounter Visit Diagnoses Not on filedocumented in this encounter Additional Health Concerns Infection Onset Date Last Indicated Resolved Time CDiff-Risk 11/16/2024 11/16/2024 11/16/2024 11:0 0 PM EDT documented as of this encounter Care Teams Occupational Therapy Aide Relationship Specialty Start Date End Date Unknown, Unknown, MD PCP - General 07/31/17 03/25/18 Jeffrey Ross DO PCP - General Internal Medicine 03/26/18 11/15/24 Jeffrey Ross DO [address] [place] [address] PCP - General Internal Medicine 11/16/24 documented as of this encounter Additional Source Comments The information contained in this document represents components of the legal health record. It is not the complete legal health record.[facility]
--- OUTSIDE RECORDS SUMMARY | 2025-05-25 07:39 | XMS_ITS | Encounter Summary ---
Author Organization [facility] Address [address] [facility] [place] [address] Phone Care Team Providers Care Cashier Payments Received Name Role Phone Jeffrey Ross DO Primary Care Provider [phone] Jeffrey Ross DO Primary Care Provider [phone] Encounter Details Date Type Department Care Team (Late st Contact Info) Description 07/03/2022 Procedure Pass [facility], Ct Scan - [address] [address] Social History Tobacco Use Types Packs/Day Years [...] documented as of this encounter Care Teams Cashier Payments Received Relationship Specialty Start Date End Date Jeffrey Ross DO PCP - General Internal Medicine 03/26/18 11/15/24 Jeffrey Ross DO [address] [place] [address] [email or web address] PCP - General Internal Medicine 11/16/24 documented as of this encounter Additional Source Comments The information contained in this document represents components of the legal health record. It is not the complete legal health record.[facility]
--- OUTSIDE RECORDS SUMMARY | 2025-05-25 07:39 | XMS_ITS | Encounter Summary ---
Author Organization [facility] Address [address] [facility] [address] [place] [address] Phone Care Team Providers Care Technician Submarine Cable Equipment Name Role Phone Unknown, Unknown Primary Care Provider Jeffrey Isidro DO Primary Care Provider [phone] Jeffrey Ross DO Primary Care Provider Reason for Referral * MRI/CAT Scan - Closed Specialty Diagnoses / Procedures Referred By Pietro ryan Referred To Contact Radiology Diagnoses Other nonspecific abnormal finding of lung field Procedures CT Chest Jeffrey Ross DO Phone: tel: fax: mailto: Referral ID Status Reason Start Date Expiration Date Visits Re quested Visits Authorized [id number] Closed 03/16/2018 03/16/2019 1 1 Encounter Details Date Type Department Care Team (Late st Contact Info) Description 03/16/2018 Ancillary Orders Virtual Department [address] [place] [address] Jeffrey Ross DO [address] [facility] [place] [address] [email or web address] Other nonspecific abnormal finding of lung field Social History Tobacco Use Types Packs/Day Years [...] as of this encounter Results * CT CHEST WITHOUT CONTRAST (03/26/2018 11:24 AM EDT) Anatomical Region Laterality Modality Chest Computed Tomogra phy 03/26/2018 11:4 9 AM EDT Impressions 03/26/2018 2:46 PM EDT No change in multiple pulmonary nodules, including some tiny calcified granulomata. The largest nodule appears fissural on the left measuring approximate 7 mm in average transaxial diameter. Follow-up unenhanced CT in 12 months is recommended. TOTAL CTDIvol: 5.0 mGy Ordering physician: Jeffrey Ross DO POS - [email or web address] Edited by: Natasha Marr on 03/26/2018 12:23 PM Narrative 03/26/2018 2:46 PM EDT HISTORY: Follow-up pulmonary nodules COMPARISON: Outside CT January 16, 2018 TECHNIQUE: Unenhanced imaging obtained from lung apex to base. Sagittal and coronal reformats generated. Automated exposure control utilized. FINDINGS: Lungs and pleura: The pleural-based nodule along the major fissure on the left measures 8.3 x 5.7 cm for an average diameter of 7 mm, unchanged since prior which was roughly measured at 6 mm on prior report but by my measurements it is approximately 8 x 5.8 mm. Multiple other sub-4 mm nodules are noted bilaterally, some of which are calcified consistent with small granulomata. There is moderate emphysematous change, upper lobe predominant. No pleural effusion. No central airway lesion. No atelectatic changes of concern. Nodes: No adenopathy is detected Cardiovascular: Small amounts of calcific coronary artery atheroma noted. No progressive aortic dilatation. No pericardial effusion. Heart does not appear enlarged. No major arch anomaly. Soft tissue and mediastinum: No findings of concern. Upper abdomen: No findings of concern for technique. Bones: Extensive bridging calcification noted along the right side of the vertebral bodies in the thoracic spine. No compression deformity or bony destructive lesion is identified. Procedure Note Remigio Dorsey MD - 03/26/2018 HISTORY: Follow-up pulmonary nodules COMPARISON: Outside CT January 16, 2018 TECHNIQUE: Unenhanced imaging obtained from lung apex to base. [place]itt[place] coronal reformats generated. Automated exposure control utilized. FINDINGS: Lungs and pleura: The pleural-based nodule along the major fissure on theleft measures 8.3 x 5.7 cm for an average diameter of 7 mm, unchangedsince prior which was roughly measured at 6 mm on prior report but by mymeasurements it is approximately 8 x 5.8 mm. Multiple other sub-4 mmnodules are noted bilaterally, some of which are calcified consistent withsmall granulomata. There is moderate emphysematous change, upper lobepredominant. No pleural effusion. No central airway lesion. No atelectaticchanges of concern. Nodes: No adenopathy is detected Cardiovascular: Small amounts of calcific coronary artery atheroma noted.No progressive aortic dilatation. No pericardial effusion. Heart does notappear enlarged. No major arch anomaly. Soft tissue and mediastinum: No findings of concern. Upper abdomen: No findings of concern for technique. Bones: Extensive bridging calcification noted along the right side of thevertebral bodies in the thoracic spine. No compression deformity or bonydestructive lesion is identified. IMPRESSION: No change in multiple pulmonary nodules, including some tiny calcifiedgranulomata. The largest nodule appears fissural on the left measuringapproximate 7 mm in average transaxial diameter. Follow-up unenhanced CTin 12 months is recommended. TOTAL CTDIvol: 5.0 mGy Ordering physician: Jeffrey Ross DO POS - [id number] Edited by: Natasha Marr on 03/26/2018 12:23 PM Jeffrey Ross DO IMG CT CHEST Final Result documented in this encounter Visit Diagnoses Diagnosis Other nonspecific abnormal finding of lung field Other nonspecific abnormal finding of lung field documented in this encounter Additional Health Concerns Infection Onset Date Last Indicated Resolved Time CDiff-Risk 11/16/2024 11/16/2024 11/16/2024 11:0 0 PM EDT documented as of this encounter Care Teams Technician Submarine Cable Equipment Relationship Specialty Start Date End Date Unknown, Unknown, PCP - General 07/31/17 03/25/18 Jeffrey Ross DO [email or web address] PCP - General Internal Medicine 03/26/18 11/15/24 Jeffrey Ross DO [address] [place] [address] [email or web address] PCP - General Internal Medicine 11/16/24 documented as of this encounter Additional Source Comments The information contained in this document represents components of the legal health record. It is not the complete legal health record.[facility]
--- OUTSIDE RECORDS SUMMARY | 2025-05-25 07:39 | XMS_ITS | Encounter Summary ---
Author Organization [facility] Address [address] [place] [address] Phone Care Team Providers Care Steam Press Operator Name Role Phone Jeffrey Ross Primary Care Provider [phone] Encounter Details Date Type Department Care Team (Late st Contact Info) Description 11/16/2024 Procedure Pass [facility], Ct Scan - [address] [address] Social History Tobacco Use Types Packs/Day Years [...] Date of Assessment Author No Risk Indicated 11/17/2024 11:06 AM Lucy De La Fuente RN * [place] Suicide Severity Rating Scale (Screener/Recent Self-Report) Question Answer Date of Assessment Author 1. Wish to be (Past 1 Month) No 11/17/2024 11:06 AM Roopa Joyner RN 2. Non-Specific Active Suicidal Thoughts (Past 1 Month) No 11/17/2024 11:06 AM Roopa Joyner RN 6. Suicidal Behavior (Lifetime) No 11/17/2024 11:06 AM Roopa Joyner RN documented as of this encounter Plan of Treatment Not on file documented as of this encounter Visit Diagnoses Not on filedocumented in this encounter Additional Health Concerns Infection Onset Date Last Indicated Resolved Time CDiff-Risk 11/16/2024 11/16/2024 11/16/2024 11:0 0 PM EDT documented as of this encounter Care Teams Steam Press Operator Relationship Specialty Start Date End Date [email or web address] DO [address] [place] [address] [email or web address] PCP - General Internal Medicine 11/16/24 documented as of this encounter Additional Source Comments The information contained in this document represents components of the legal health record. It is not the complete legal health record.[facility]
--- OUTSIDE RECORDS SUMMARY | 2025-05-25 07:39 | XMS_ITS | Encounter Summary ---
Author Organization [facility] Address [address] [facility] [address] [place] [address] Phone Care Team Providers Care Energy Director Name Role Phone Unknown, Unknown Primary Care Provider Jeffrey Isidro DO Primary Care Provider [phone] Jeffrey Ross DO Primary Care Provider [phone] Encounter Details Date Type Department Care Team (Late st Contact Info) Description 03/24/2018 Procedure Pass [facility],Outside Imaging [address] [place] [address] Social History Tobacco Use Types Packs/Day Years [...] documented as of this encounter Care Teams Energy Director Relationship Specialty Start Date End Date Unknown, Unknown, PCP - General 07/31/17 03/25/18 Jeffrey Ross DO PCP - General Internal Medicine 03/26/18 11/15/24 Jeffrey Ross DO [address] [place] [address] [email or web address] PCP - General Internal Medicine 11/16/24 documented as of this encounter Additional Source Comments The information contained in this document represents components of the legal health record. It is not the complete legal health record.[facility]
--- OUTSIDE RECORDS SUMMARY | 2025-05-25 07:39 | XMS_ITS | Encounter Summary ---
Author Organization [facility] Address [address] [place] [address] [place] [address] Phone Care Team Providers Care Junk Removal Specialist Name Role Phone Unknown, Unknown Primary Care Provider Jeffrey Isidro DO Primary Care Provider [phone] Jeffrey Ross DO Primary Care Provider [phone] Encounter Details Date Type Department Care Team (Late st Contact Info) Description 03/16/2018 Procedure Pass [facility], Ct Scan - [address] [address] Social History Tobacco Use Types Packs/Day Years [...] documented as of this encounter Care Teams Junk Removal Specialist Relationship Specialty Start Date End Date Unknown, Unknown, PCP - General 07/31/17 03/25/18 Jeffrey Ross DO PCP - General Internal Medicine 03/26/18 11/15/24 Jeffrey Ross DO [address] [place] [address] PCP - General Internal Medicine 11/16/24 documented as of this encounter Additional Source Comments The information contained in this document represents components of the legal health record. It is not the complete legal health record.[facility]
--- OUTSIDE RECORDS SUMMARY | 2025-05-25 07:39 | XMS_ITS | Encounter Summary ---
Author Organization [facility] Address [address] [facility] [address] [place] [address] Phone Care Team Providers Care Park Guard Name Role Phone Jeffrey Ross DO Primary Care Provider [phone] Jeffrey Ross DO Primary Care Provider Encounter Details Date Type Department Care Team ([facility] st Contact Info) Description 01/30/2023 Transcribe Orders Virtual Department [address] [place] [address] Jeffrey Ross DO [address] [facility] [place] [address] [place] [address] Chronic sinusitis, unspecified location (Primary Dx) Social [...] documented as of this encounter Results * XR PARANASAL SINUSES 3 OR MORE VIEWS (04/04/2023 1:48 PM EDT) Anatomical Region Laterality Modality Face Computed Radiogr aphy 04/05/2023 5:58 PM EDT Impressions 04/05/2023 5:59 PM EDT Normal examination Narrative 04/05/2023 5:59 PM EDT XR PARANASAL SINUSES 3 OR MORE VIEWS COMPARISON: Sinus CT 08/06/2022 FINDINGS: The paranasal sinuses are clear and well-aerated. There is no evidence of an air-fluid level. Procedure Note Dmitri Mesa MD, REE - 04/05/2023 XR PARANASAL SINUSES 3 OR MORE VIEWS COMPARISON: Sinus CT 08/06/2022 FINDINGS: The paranasal sinuses are clear and well-aerated. There is no evidence ofan air- fluid level. IMPRESSION: Normal examination Jeffrey Ross DO IMG XR HEAD AND SHUNT SERIES Fin al Result documented in this encounter Visit Diagnoses Diagnosis Chronic sinusitis, unspecified location- Primary Chronic sinusitis, unspecified location documented in this encounter Additional Health Concerns Infection Onset Date Last Indicated Resolved Time CDiff-Risk 11/16/2024 11/16/2024 11/16/2024 11:0 0 PM EDT documented as of this encounter Care Teams Park Guard Relationship Specialty Start Date End Date Jeffrey Ross DO [email or web address] PCP - General Internal Medicine 03/26/18 11/15/24 Jeffrey Ross DO [address] [place] [address] [email or web address] PCP - General Internal Medicine 11/16/24 documented as of this encounter Additional Source Comments The information contained in this document represents components of the legal health record. It is not the complete legal health record.[facility]
--- OUTSIDE RECORDS SUMMARY | 2025-05-25 07:39 | XMS_ITS | Encounter Summary ---
Author Organization [facility] Address [address] [place] [address] Phone Care Team Providers Care Flower Picker Name Role Phone Unknown, Unknown Primary Care Provider Jeffrey Isidro DO Primary Care Provider [phone] Jeffrey Ross DO Primary Care Provider [phone] Encounter Details Date Type Department Care Team (Latest Contact Info) Description 03/17/2018 Transcribe Orders [facility] [address] [place] [address] Danny Govea MD [facility] [employer], [address] [address] [email or web address] Elevated prostate specific antigen (PSA) (Primary Dx) Social History Tobacco Use Types [...] documented as of this encounter Results * (ABNORMAL) PSA (screening) (03/17/2018 7:42 AM EDT) PSA 4.23(H) 0 - 4.00 ng/mL [facility] Blood 03/17/2018 7:42 AM EDT 03/17/2018 7:48 AM EDT us Danny Govea MD LAB BLOOD ORDERABLES Final Resu lt [facility] [address] [place] [address] documented in this encounter Visit Diagnoses Diagnosis Elevated prostate specific antigen (PSA)- Primary documented in this encounter Additional Health Concerns Infection Onset Date Last Indicated Resolved Time CDiff-Risk 11/16/2024 11/16/2024 11/16/2024 11:0 0 PM EDT documented as of this encounter Care Teams Flower Picker Relationship Specialty Start Date End Date Unknown, Unknown, PCP - General 07/31/17 03/25/18 Jeffrey Ross DO PCP - General Internal Medicine 03/26/18 11/15/24 Jeffrey Ross DO [address] [place] [address] PCP - General Internal Medicine 11/16/24 documented as of this encounter Additional Source Comments The information contained in this document represents components of the legal health record. It is not the complete legal health record.[facility]
--- OUTSIDE RECORDS SUMMARY | 2025-05-25 07:39 | XMS_ITS | Encounter Summary ---
Author Organization [facility] Address [address] [place] [address] Phone Care Team Providers Care Help Desk Analyst Name Role Phone Jeffrey Ross Primary Care Provider [phone] Encounter Details Date Type Department Care Team (Late st Contact Info) Description 11/29/2024 Procedure Pass [facility], Ct Scan - [address] [address] Social History Tobacco Use Types Packs/Day Years [...] on filedocumented in this encounter Care Teams Help Desk Analyst Relationship Specialty Start Date End Date Jeffrey Ross DO [address] [place] [address] [email or web address] PCP - General Internal Medicine 11/16/24 documented as of this encounter Additional Source Comments The information contained in this document represents components of the legal health record. It is not the complete legal health record.[facility]
--- OUTSIDE RECORDS SUMMARY | 2025-05-25 07:39 | XMS_ITS | Encounter Summary ---
Author Organization [facility] Address [address] [place] [phone] Phone Care Team Providers Care Automotive Parts Specialist Name Role Phone Noelkailash Jeffrey Call DO Primary Care Provider [phone] Reason for Referral * MRI/CAT Scan - Closed Specialty Diagnoses / Procedures Referred By Pietro t Referred To Contact Radiology Diagnoses Malignant neoplasm of bladder neck Procedures CT Abdomen/Pelvis Mohini Alston PA [address] [facility] [place] [address] [place] [address] Phone: tel: fax: Referral ID Status Reason Start Date Expiration Date Visits Re quested Visits Authorized [id number] Closed 11/29/2024 11/29/2025 1 1 * MRI/CAT Scan - Closed Specialty Diagnoses / Procedures Referred By Pietro ryan Referred To Contact Radiology Diagnoses Other nonspecific abnormal finding of lung field Procedures CT Chest Mohini Alston PA [address] [facility] [place] [address] [place] [address] Phone: tel: fax: Referral ID Status Reason Start Date Expiration Date Visits Re quested Visits Authorized [id number] Closed 11/29/2024 11/29/2025 1 1 Encounter Details Date Type Department Care Team (Latest Contact Info) Description 11/29/2024 Transcribe Orders Virtual Department [address] [place] [address] Mohini Alston PA [address] [address] [place] [address] Other nonspecific abnormal finding of lung field (Primary Dx); Malignant neoplasm of bladder neck Social History Tobacco Use Types Packs/Day Years [...] as of this encounter Results * CT ABDOMEN/PELVIS WITH CONTRAST (12/06/2024 4:40 PM EDT) Anatomical Region Laterality Modality Abdomen, Pelvis Computed Tomogra phy 12/08/2024 10:1 8 AM EDT Impressions 12/08/2024 10:52 AM EDT Stable left major fissural lymph node and benign pulmonary nodules without acute intrathoracic pathology. Multiple abdominopelvic findings as above including aortic aneurysm, chronic left hepatic lobe lesion, and bladder wall thickening all essentially unchanged from the recent study of 11/16/2024. No abdominopelvic metastatic deposits apparent. Narrative 12/08/2024 10:[address] ABDOMEN/PELVIS WITH CONTRAST, CT CHEST WITH CONTRAST Referring clinician's provided indication for this examination in Epic: Outside Radiology Order; PRIMARY MALIGNANT NEOPLASM OF URINARY BLADDER NECK TECHNIQUE: Multidetector-row CTs of the chest, abdomen and pelvis was performed after administration of intravenous contrast using tailored dose modulation techniques. Images were reconstructed in the axial, coronal, and sagittal planes. COMPARISON: 03/26/[address] and 11/16/[address] FINDINGS: CHEST: Devices/Tubes/Lines: None. Lungs: Moderately well-expanded. No acute airspace infiltrate. Stable moderate centrilobular emphysematous changes and basilar parenchymal scarring. Nodule related to left major fissure stable at 8 x 6 mm, consistent with intrafissural lymph node. Scattered sub-5 mm parenchymal nodules and granulomas bilaterally are unchanged. No new or enlarging nodules. Multiple foci of a callosal debris again demonstrated in the trachea and left mainstem bronchi. Pleura: No pleural effusion or pneumothorax. Mediastinum: No significant pericardial effusion. Main trunks of the right and left pulmonary arteries appear patent. Noncalcified plaquing along the margin of the descending aorta without evidence of acute aneurysm. Thyroid unremarkable. Chronic coronary artery calcification. Lymph Nodes: No pathologically enlarged mediastinal, hilar, supraclavicular, or axillary nodes. Chest Wall: No chest wall mass. Bones/Soft Tissues: Chronic thoracic DISH. No lytic or sclerotic metastatic deposits apparent. 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 No new hepatic lesion or hepatomegaly demonstrated. Biliary: Gallbladder unremarkable. No biliary ductal dilatation. Spleen: No splenomegaly or focal lesions. Pancreas: No masses or ductal dilatation. Adrenal Glands: No nodules. Kidneys/Ureters: No solid masses, stones, or hydronephrosis. Bowel: No evidence of small bowel obstruction. Small to moderate colonic stool burden with sigmoid diverticulosis. No acute paracolic fat stranding to imply active diverticulitis. Peritoneum/Retroperitoneum: No free fluid or mass. Lymph Nodes: No pathologically enlarged mesenteric, para-aortic, iliac chain, or inguinal lymph nodes detected. Pelvic Organs/Bladder: Bladder relatively collapsed with diffuse wall thickening again noted. No progressive infiltration of the surrounding fat. Stable prostatomegaly. Vessels: Thrombus containing sub-renal abdominal aortic aneurysm stable in maximal axial oblique dimension at 5.6 cm. No evidence of para-aortic hemorrhage. Atherosclerotic plaquing again noted in the aorta and iliac vessels. 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 Main portal vein grossly patent. Bones/Soft Tissues: No abdominal wall mass or bowel containing hernia. Stable fat-containing inguinal hernias. No acute bony abnormality. Procedure Note Guillaume Castellano MD - 12/08/2024 CT ABDOMEN/PELVIS WITH CONTRAST, CT CHEST WITH CONTRAST Referring clinician's provided indication for this examination in Epic:Outside Radiology Order; PRIMARY MALIGNANT NEOPLASM OF URINARY BLADDERNECK TECHNIQUE: Multidetector-row CTs of the chest, abdomen and pelvis was performed afteradministration of intravenous contrast using tailored dose modulationtechniques. Images were reconstructed in the axial, coronal, and sagittalplanes. COMPARISON: 03/26/[address] and 11/16/[address] FINDINGS: CHEST: Devices/Tubes/Lines: None. Lungs: Moderately well-expanded. No acute airspace infiltrate. Stablemoderate centrilobular emphysematous changes and basilar parenchymalscarring. Nodule related to left major fissure stable at 8 x 6 mm,consistent with intrafissural lymph node. Scattered sub-5 mm parenchymalnodules and granulomas bilaterally are unchanged. No new or enlargingnodules. Multiple foci of a callosal debris again demonstrated in thetrachea and left mainstem bronchi. Pleura: No pleural effusion or pneumothorax. Mediastinum: No significant pericardial effusion. Main trunks of the rightand left pulmonary arteries appear patent. Noncalcified plaquing along themargin of the descending aorta without evidence of acute aneurysm. Thyroidunremarkable. Chronic coronary artery calcification. Lymph Nodes: No pathologically enlarged mediastinal, hilar,supraclavicular, or axillary nodes. Chest Wall: No chest wall mass. Bones/Soft Tissues: Chronic thoracic DISH. No lytic or scleroticmetastatic deposits apparent. ABDOMEN/PELVIS: Liver: No significant change in left hepatic lobe hypodense lesion since11/16/2024, incompletely characterized but suspected to reflect cavernoushemangioma on previous MRI of 05/22/2018. No new hepatic lesion orhepatomegaly demonstrated. Biliary: Gallbladder unremarkable. No biliary ductal dilatation. Spleen: No splenomegaly or focal lesions. Pancreas: No masses or ductal dilatation. Adrenal Glands: No nodules. Kidneys/Ureters: No solid masses, stones, or hydronephrosis. Bowel: No evidence of small bowel obstruction. Small to moderate colonicstool burden with sigmoid diverticulosis. No acute paracolic fat strandingto imply active diverticulitis. Peritoneum/Retroperitoneum: No free fluid or mass. Lymph Nodes: No pathologically enlarged mesenteric, para-aortic, iliacchain, or inguinal lymph nodes detected. Pelvic Organs/Bladder: Bladder relatively collapsed with diffuse wallthickening again noted. No progressive infiltration of the surroundingfat. Stable prostatomegaly. Vessels: Thrombus containing sub-renal abdominal aortic aneurysm stable inmaximal axial oblique dimension at 5.6 cm. No evidence of para-aortichemorrhage. Atherosclerotic plaquing again noted in the aorta and iliacvessels. Thrombosed celiac artery aneurysm and narrowing of the adjacentproximal celiac artery unchanged. Main portal vein grossly patent. Bones/Soft Tissues: No abdominal wall mass or bowel containing hernia.Stable fat-containing inguinal hernias. No acute bony abnormality. IMPRESSION: Stable left major fissural lymph node and benign pulmonary nodules withoutacute intrathoracic pathology. Multiple abdominopelvic findings as above including aortic aneurysm,chronic left hepatic lobe lesion, and bladder wall thickening allessentially unchanged from the recent study of 11/16/2024. Noabdominopelvic metastatic deposits apparent. us Mohini MILLER IMG CT ABD/PELVIS Final Res ult * CT CHEST WITH CONTRAST (12/06/2024 4:40 PM EDT) Anatomical Region Laterality Modality Chest Computed Tomogra phy 12/08/2024 10:1 8 AM EDT Impressions 12/08/2024 10:52 AM EDT Stable left major fissural lymph node and benign pulmonary nodules without acute intrathoracic pathology. Multiple abdominopelvic findings as above including aortic aneurysm, chronic left hepatic lobe lesion, and bladder wall thickening all essentially unchanged from the recent study of 11/16/2024. No abdominopelvic metastatic deposits apparent. Narrative 12/08/2024 10:[address] ABDOMEN/PELVIS WITH CONTRAST, CT CHEST WITH CONTRAST Referring clinician's provided indication for this examination in Epic: Outside Radiology Order; PRIMARY MALIGNANT NEOPLASM OF URINARY BLADDER NECK TECHNIQUE: Multidetector-row CTs of the chest, abdomen and pelvis was performed after administration of intravenous contrast using tailored dose modulation techniques. Images were reconstructed in the axial, coronal, and sagittal planes. COMPARISON: 03/26/[address] and 11/16/[address] FINDINGS: CHEST: Devices/Tubes/Lines: None. Lungs: Moderately well-expanded. No acute airspace infiltrate. Stable moderate centrilobular emphysematous changes and basilar parenchymal scarring. Nodule related to left major fissure stable at 8 x 6 mm, consistent with intrafissural lymph node. Scattered sub-5 mm parenchymal nodules and granulomas bilaterally are unchanged. No new or enlarging nodules. Multiple foci of a callosal debris again demonstrated in the trachea and left mainstem bronchi. Pleura: No pleural effusion or pneumothorax. Mediastinum: No significant pericardial effusion. Main trunks of the right and left pulmonary arteries appear patent. Noncalcified plaquing along the margin of the descending aorta without evidence of acute aneurysm. Thyroid unremarkable. Chronic coronary artery calcification. Lymph Nodes: No pathologically enlarged mediastinal, hilar, supraclavicular, or axillary nodes. Chest Wall: No chest wall mass. Bones/Soft Tissues: Chronic thoracic DISH. No lytic or sclerotic metastatic deposits apparent. 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 No new hepatic lesion or hepatomegaly demonstrated. Biliary: Gallbladder unremarkable. No biliary ductal dilatation. Spleen: No splenomegaly or focal lesions. Pancreas: No masses or ductal dilatation. Adrenal Glands: No nodules. Kidneys/Ureters: No solid masses, stones, or hydronephrosis. Bowel: No evidence of small bowel obstruction. Small to moderate colonic stool burden with sigmoid diverticulosis. No acute paracolic fat stranding to imply active diverticulitis. Peritoneum/Retroperitoneum: No free fluid or mass. Lymph Nodes: No pathologically enlarged mesenteric, para-aortic, iliac chain, or inguinal lymph nodes detected. Pelvic Organs/Bladder: Bladder relatively collapsed with diffuse wall thickening again noted. No progressive infiltration of the surrounding fat. Stable prostatomegaly. Vessels: Thrombus containing sub-renal abdominal aortic aneurysm stable in maximal axial oblique dimension at 5.6 cm. No evidence of para-aortic hemorrhage. Atherosclerotic plaquing again noted in the aorta and iliac vessels. 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 Main portal vein grossly patent. Bones/Soft Tissues: No abdominal wall mass or bowel containing hernia. Stable fat-containing inguinal hernias. No acute bony abnormality. Procedure Note Guillaume Castellano MD - 12/08/2024 CT ABDOMEN/PELVIS WITH CONTRAST, CT CHEST WITH CONTRAST Referring clinician's provided indication for this examination in [facility]:Outside Radiology Order; PRIMARY MALIGNANT NEOPLASM OF URINARY BLADDERNECK TECHNIQUE: Multidetector-row CTs of the chest, abdomen and pelvis was performed afteradministration of intravenous contrast using tailored dose modulationtechniques. Images were reconstructed in the axial, coronal, and sagittalplanes. COMPARISON: 03/26/[address] and 11/16/[address] FINDINGS: CHEST: Devices/Tubes/Lines: None. Lungs: Moderately well-expanded. No acute airspace infiltrate. Stablemoderate centrilobular emphysematous changes and basilar parenchymalscarring. Nodule related to left major fissure stable at 8 x 6 mm,consistent with intrafissural lymph node. Scattered sub-5 mm parenchymalnodules and granulomas bilaterally are unchanged. No new or enlargingnodules. Multiple foci of a callosal debris again demonstrated in thetrachea and left mainstem bronchi. Pleura: No pleural effusion or pneumothorax. Mediastinum: No significant pericardial effusion. Main trunks of the rightand left pulmonary arteries appear patent. Noncalcified plaquing along themargin of the descending aorta without evidence of acute aneurysm. Thyroidunremarkable. Chronic coronary artery calcification. Lymph Nodes: No pathologically enlarged mediastinal, hilar,supraclavicular, or axillary nodes. Chest Wall: No chest wall mass. Bones/Soft Tissues: Chronic thoracic DISH. No lytic or scleroticmetastatic deposits apparent. ABDOMEN/PELVIS: Liver: No significant change in left hepatic lobe hypodense lesion since11/16/2024, incompletely characterized but suspected to reflect cavernoushemangioma on previous MRI of 05/22/2018. No new hepatic lesion orhepatomegaly demonstrated. Biliary: Gallbladder unremarkable. No biliary ductal dilatation. Spleen: No splenomegaly or focal lesions. Pancreas: No masses or ductal dilatation. Adrenal Glands: No nodules. Kidneys/Ureters: No solid masses, stones, or hydronephrosis. Bowel: No evidence of small bowel obstruction. Small to moderate colonicstool burden with sigmoid diverticulosis. No acute paracolic fat strandingto imply active diverticulitis. Peritoneum/Retroperitoneum: No free fluid or mass. Lymph Nodes: No pathologically enlarged mesenteric, para-aortic, iliacchain, or inguinal lymph nodes detected. Pelvic Organs/Bladder: Bladder relatively collapsed with diffuse wallthickening again noted. No progressive infiltration of the surroundingfat. Stable prostatomegaly. Vessels: Thrombus containing sub-renal abdominal aortic aneurysm stable inmaximal axial oblique dimension at 5.6 cm. No evidence of para-aortichemorrhage. Atherosclerotic plaquing again noted in the aorta and iliacvessels. Thrombosed celiac artery aneurysm and narrowing of the adjacentproximal celiac artery unchanged. Main portal vein grossly patent. Bones/Soft Tissues: No abdominal wall mass or bowel containing hernia.Stable fat-containing inguinal hernias. No acute bony abnormality. IMPRESSION: Stable left major fissural lymph node and benign pulmonary nodules withoutacute intrathoracic pathology. Multiple abdominopelvic findings as above including aortic aneurysm,chronic left hepatic lobe lesion, and bladder wall thickening allessentially unchanged from the recent study of 11/16/2024. Noabdominopelvic metastatic deposits apparent. Mohini MILLER IMG CT CHEST Final Resul t documented in this encounter Visit Diagnoses Diagnosis Other nonspecific abnormal finding of lung field- Primary Malignant neoplasm of bladder neck Other nonspecific abnormal finding of lung field Malignant neoplasm of bladder neck documented in this encounter Care Teams Automotive Parts Specialist Relationship Specialty Start Date End Date Jeffrey Ross DO [address] [place] [id number] [email or web address] PCP - General Internal Medicine 11/16/24 documented as of this encounter Additional Source Comments The information contained in this document represents components of the legal health record. It is not the complete legal health record.[facility]
--- OUTSIDE RECORDS SUMMARY | 2025-05-25 07:39 | XMS_ITS | Encounter Summary ---
Author Organization [facility] Address [address] [facility] [address] [place] [address] Phone Care Team Providers Care Metal Furnace Operator Name Role Phone Jeffrey Rsos DO Primary Care Provider [phone] Jeffrey Ross DO Primary Care Provider [phone] Reason for Referral * MRI/CAT Scan - Closed Specialty Diagnoses / Procedures Referred By Pietro ryan Referred To Contact Radiology Diagnoses Chronic sinusitis, unspecified location Procedures CT Face Jeffrey Ross DO Phone: tel: fax: [email or web address] Referral ID Status Reason Start Date Expiration Date Visits Re quested Visits Authorized [id number] Closed 07/03/2022 07/03/2023 1 1 Encounter Details Date Type Department Care Team ([facility] st Contact Info) Description 07/03/2022 Transcribe Orders Virtual Department [address] [place] [address] Jeffrey Ross DO [address] [place] [address] [email or web address] Chronic sinusitis, unspecified location (Primary Dx) Social [...] Results * CT FACE (SINUS) WITHOUT CONTRAST (08/06/2022 8:48 AM EST) Anatomical Region Laterality Modality Face Computed Tomogra phy 08/06/2022 11:2 3 AM EST Impressions 08/06/2022 11:34 AM EST Ethmoid and maxillary sinus inflammatory changes as above with occlusion of the right ostiomeatal complex. No specific findings of acute bacterial sinusitis. Nasal septal deviation and spur with mild mid nasal mucosal thickening but no dominant polyp or destructive bony process apparent. Narrative 08/06/2022 11:[address] FACE (SINUS) WITHOUT CONTRAST TECHNIQUE: Multidetector-row CT of the sinuses was performed without intravenous contrast using tailored dose modulation techniques. Images were reconstructed in the axial, coronal, and sagittal planes. COMPARISON: None FINDINGS: Frontal sinuses and frontoethmoidal junctions: Mild mucosal thickening of frontoethmoid junctions with the frontal sinuses are otherwise overall clear. Anterior and posterior ethmoid air cells: Scattered zones of mucosal thickening and inflammatory material. Maxillary sinuses and infundibula: Mild eccentric bilateral mucosal thickening, overall more pronounced on the left than right but with occlusion of the right ostiomeatal channel due to inflammatory material. Left ostiomeatal complex is congenitally narrowed due to elongated infundibula are patent channel is present, as is a secondary patent communication between the maxillary antrum and middle meatus. Sphenoid sinuses and sphenoethmoidal recesses: Clear. Nasal cavity: Left nasal septal deviation and a prominent mid septal spur partially narrowing the inferior meatus. Slightly nodular mucosal thickening overlying the ethmoid air cells and the dorsal septum but without discrete polypoid mass. Imaged maxillary teeth: No periapical lucencies. Mastoid air cells and middle ear cavities: Minimal inflammatory change at the base of the mastoid air cells without significant fluid collections present. Temporomandibular joints: Intact. Brain: Images of the brain parenchyma are not of diagnostic quality for the soft tissues. No focal abnormality is visible with this technique. Orbits and globes: Normal. No abnormality. Procedure Note Guillaume Castellano MD - 08/06/2022 CT FACE (SINUS) WITHOUT CONTRAST TECHNIQUE: Multidetector-row CT of the sinuses was performed withoutintravenous contrast using tailored dose modulation techniques. Imageswere reconstructed in the axial, coronal, and sagittal planes. COMPARISON: None FINDINGS: Frontal sinuses and frontoethmoidal junctions: Mild mucosal thickening offrontoethmoid junctions with the frontal sinuses are otherwise overallclear. Anterior and posterior ethmoid air cells: Scattered zones of mucosalthickening and inflammatory material. Maxillary sinuses and infundibula: Mild eccentric bilateral mucosalthickening, overall more pronounced on the left than right but withocclusion of the right ostiomeatal channel due to inflammatory material.Left ostiomeatal complex is congenitally narrowed due to elongatedinfundibula are patent channel is present, as is a secondary patentcommunication between the maxillary antrum and middle meatus. Sphenoid sinuses and sphenoethmoidal recesses: Clear. Nasal cavity: Left nasal septal deviation and a prominent mid septal spurpartially narrowing the inferior meatus. Slightly nodular mucosalthickening overlying the ethmoid air cells and the dorsal septum butwithout discrete polypoid mass. Imaged maxillary teeth: No periapical lucencies. Mastoid air cells and middle ear cavities: Minimal inflammatory change atthe base of the mastoid air cells without significant fluid collectionspresent. Temporomandibular joints: Intact. Brain: Images of the brain parenchyma are not of diagnostic quality forthe soft tissues. No focal abnormality is visible with this technique. Orbits and globes: Normal. No abnormality. IMPRESSION: Ethmoid and maxillary sinus inflammatory changes as above with occlusionof the right ostiomeatal complex. No specific findings of acute bacterialsinusitis. Nasal septal deviation and spur with mild mid nasal mucosalthickening but no dominant polyp or destructive bony process apparent. us Jeffrey A Bigda DO IMG CT HEAD/NECK Final Result documented in this encounter Visit Diagnoses Diagnosis Chronic sinusitis, unspecified location- Primary Chronic sinusitis, unspecified location documented in this encounter Additional Health Concerns Infection Onset Date Last Indicated Resolved Time CDiff-Risk 11/16/2024 11/16/2024 11/16/2024 11:0 0 PM EDT documented as of this encounter Care Teams Metal Furnace Operator Relationship Specialty Start Date End Date Jeffrey Ross DO PCP - General Internal Medicine 03/26/18 11/15/24 Jeffrey Ross DO [address] [place] [id number] PCP - General Internal Medicine 11/16/24 documented as of this encounter Additional Source Comments The information contained in this document represents components of the legal health record. It is not the complete legal health record.[facility]
--- OUTSIDE RECORDS SUMMARY | 2025-05-25 07:39 | XMS_ITS | Encounter Summary ---
Author Organization [facility] Address [address] [facility] [address] [place] [address] Phone Care Team Providers Care Brand Executive Name Role Phone Jeffrey Ross DO Primary Care Provider [phone] Jeffrey Ross DO Primary Care Provider [phone] Reason for Referral * MRI/CAT Scan - Closed Specialty Diagnoses / Procedures Referred By Pietro ryan Referred To Contact Radiology Diagnoses Other intestinal obstruction unspecified as to partial versus complete obstruction Procedures MRI Enterography Abdomen/Pelvis MRI PELVIS (GI/) Jeffrey Ross DO Phone: tel: fax: [email or web address] Referral ID Status Reason Start Date Expiration Date Visits Re quested Visits Authorized [id number] Closed 05/06/2018 05/06/2019 1 1 Encounter Details Date Type Department Care Team (Late st Contact Info) Description 05/06/2018 Ancillary Orders Virtual Department [address] [place] [address] Jeffrey Ross DO [address] [place] [address] [email or web address] Other intestinal obstruction unspecified as to partial versus complete obstruction Social History Tobacco Use Types Packs/Day Years [...] documented as of this encounter Results * MRI ENTEROGRAPHY ABDOMEN AND PELVIS WITH AND WITHOUT CONTRAST (05/22/2018 10:36 AM EDT) Anatomical Region Laterality Modality Pelvis Magnetic Resonan ce 05/22/2018 4:18 PM EDT Impressions 05/22/2018 4:37 PM EDT 1. Peristalsis limits evaluation of the bowel loops. No findings suggestive of bowel obstruction. 2. Incompletely characterized left hepatic lesion with findings that could suggest a hemangioma. POS [id number] Narrative 05/22/2018 4:37 PM EDT EXAM: MRI ENTEROGRAPHY ABDOMEN AND PELVIS WITHOUT AND WITH INTRAVENOUS CONTRAST COMPARISON: Outside CT on January 16, 2018. TECHNIQUE: Multiplanar MRI of the abdomen and pelvis was performed per the standard MR enterography protocol. Oral contrast was administered prior to this exam. Exam was performed prior to and after the administration of intravenous contrast. FINDINGS: Limited evaluation of the liver demonstrates a incompletely characterized 1.4 cm mild T2 hyperintense lesion in the left hepatic lobe with possible nodular peripheral enhancement on the postcontrast image. A nonenhancing tiny lesion in the right hepatic lobe likely represents a tiny cyst. Limited evaluation of the kidneys demonstrates nonenhancing tiny cyst in the left kidney. Limited evaluation of the spleen, pancreas, and adrenal glands demonstrates no gross abnormality. STOMACH/GI TRACT: No evidence of bowel obstruction. Stomach is distended with fluid. Bowel peristalsis limits evaluation of the bowel loops. There is no abnormal small bowel wall thickening, stricture or enhancement. The terminal ileum appears normal. This exam was not performed for the evaluation of the large bowel however there is no gross abnormality. PELVIS: Urinary bladder appears unremarkable. Prostate gland is enlarged. PERITONEUM AND RETROPERITONEUM: No free fluid. LYMPH NODES: No adenopathy. VESSELS: Fusiform aneurysmal dilatation of the infrarenal abdominal aorta (up to 3.2 cm) and right common iliac artery (up to 1.4 cm). Mild flattened appearance of the inferior vena cava could be related to the hydration status. BONES AND SOFT TISSUES: Limited evaluation of the osseous structures demonstrates no suspicious abnormality. Procedure Note Joseph Desir MD - 05/22/2018 EXAM: MRI ENTEROGRAPHY ABDOMEN AND PELVIS WITHOUT AND WITH INTRAVENOUSCONTRAST COMPARISON: Outside CT on January 16, 2018. TECHNIQUE: Multiplanar MRI of the abdomen and pelvis was performed per theunion dale MR enterography protocol. Oral contrast was administered prior tothis exam. Exam was performed prior to and after the administration ofintravenous contrast. FINDINGS: Limited evaluation of the liver demonstrates a incompletely characterized1.4 cm mild T2 hyperintense lesion in the left hepatic lobe with possiblenodular peripheral enhancement on the postcontrast image. A nonenhancingtiny lesion in the right hepatic lobe likely represents a tiny cyst. Limited evaluation of the kidneys demonstrates nonenhancing tiny cyst inthe left kidney. Limited evaluation of the spleen, pancreas, and adrenal glandsdemonstrates no gross abnormality. STOMACH/GI TRACT: No evidence of bowel obstruction. Stomach is distendedwith fluid. Bowel peristalsis limits evaluation of the bowel loops. Thereis no abnormal small bowel wall thickening, stricture or enhancement. Theterminal ileum appears normal. This exam was not performed for the evaluation of the large bowel howeverthere is no gross abnormality. PELVIS: Urinary bladder appears unremarkable. Prostate gland isenlarged. PERITONEUM AND RETROPERITONEUM: No free fluid. LYMPH NODES: No adenopathy. VESSELS: Fusiform aneurysmal dilatation of the infrarenal abdominal aorta(up to 3.2 cm) and right common iliac artery (up to 1.4 cm). Mildflattened appearance of the inferior vena cava could be related to thehydration status. BONES AND SOFT TISSUES: Limited evaluation of the osseous structuresdemonstrates no suspicious abnormality. IMPRESSION: 1. Peristalsis limits evaluation of the bowel loops. No findingssuggestive of bowel obstruction. 2. Incompletely characterized left hepatic lesion with findings thatcould suggest a hemangioma. POS [id number] us Jeffrey A Bigda DO IMG MR ABDOMEN Final Result documented in this encounter Visit Diagnoses Diagnosis Other intestinal obstruction unspecified as to partial versus complete obstruction Other intestinal obstruction unspecified as to partial versus complete obstruction documented in this encounter Additional Health Concerns Infection Onset Date Last Indicated Resolved Time CDiff-Risk 11/16/2024 11/16/2024 11/16/2024 11:0 0 PM EDT documented as of this encounter Care Teams Brand Executive Relationship Specialty Start Date End Date Jeffrey Ross DO PCP - General Internal Medicine 03/26/18 11/15/24 Jeffrey Ross DO [address] [place] [address] PCP - General Internal Medicine 11/16/24 documented as of this encounter Additional Source Comments The information contained in this document represents components of the legal health record. It is not the complete legal health record.[facility]
--- OUTSIDE RECORDS SUMMARY | 2025-05-25 07:39 | XMS_ITS | Patient Health Record ---
Author Organization [facility] Address [address] [facility] [place] [address] Care Team Providers Care Hydraulic Spinner Name Role Phone Jeffrey Ross MD Primary Care Provider Edgardo Garcia [phone] Allergies Allergen (clinical drug ingredient) Drug/Non Drug Allergy documented on EMR Reaction Allergy Type Onset Date Status sulfamethoxazole / trimethoprim Bactrim nausea Drug Allergy Active Substance with sulfonamide structure and antibacterial mechanism of action (substance) Sulfa Antibiotics nausea Drug Allergy A ctive Reason For Referral No Information Medications Medication SIG (Take, Route, Frequency, Duration) Notes Start Date End Date Status Fluticasone Propionate 50 MCG/ACT Nasal; Duration: 90 Active Lovastatin 10 MG Oral; Duration: 90 Active Brandy-D Allergy & Congestion 180-240 MG TAKE 1 TABLET BY MOUTH EVERY DAY Oral; Duration: 30 Active Advair Diskus 250-50 MCG/ACT Inhalation; Duration: 90 Act latasha Moexipril HCl 15 MG Oral; Duration: 90 Active Ciclopirox Olamine 0.77 % 1 application to affected area Externally Twice a day to effected areas on feet; Duration: 30 days 01/07/2022 Active Immunizations Vaccine Route Administration Date Status Comme nts COVID-19 Pfizer BioNTech Vaccine Unknown 12/30/2021 Administered 1st 10/25/20 2nd 11/15/20 3rd 07/01/21 Social History Tobacco Use: Social History Observation Description Date Details (start date - stop date) Current Smoker NA - NA Tobacco Use/Smoking Question Answer Notes Are you a: current smoker How often do you smoke cigarettes? every day How many cigarettes a day do you smoke? 6-10 Additional Findings: Tobacco User Light cigarett e smoker ((1-9 cigs/day) Alcohol Screen Question Answer Notes Did you have a drink containing alcohol in the p ast year? Yes Points 0 Interpretation Negative Tobacco use other than smoking: Question Answer Notes Are you an other tobacco user? No Problems Problem Type SNOMED Code ICD Code Onset Dates Problem Status W/U Status Risk Notes Problem Acquired hallux valgus (91977599) Hallux valgus (acquired), right foot (M20.11) Active confirmed Plan Of Treatment Pending Test Test Name Order Date X ray : Foot, right 3V 01/07/2022 Insurance Providers Payer Name Payer Address Payer Phone Subscriber Number Group Number Insured Name Patient Relationship to Insured Coverage Start Date Coverage End Date Medicare National Govt S[employer] [address] [place] [address] [id number] Dioni Galvez Self - patient is the insured Med Blue [facility] [address] [place] [address] [phone] [id number] Dioni Galvez Self - patient is the insured Medical (General) History Medical History History ICD Code asthma Chicken pox High blood pressure Measles Mumps Psoriasis/eczema Stomach ulcer Transfusions Surgical History Surgery Date(Month/Year) abdominal aneurism celiac aneurism
--- OUTSIDE RECORDS SUMMARY | 2025-05-25 07:39 | XMS_ITS | Encounter Summary ---
Author Organization [facility] Address [address] [facility] [address] [place] [address] Phone Care Team Providers Care Bioinformatics Specialist Name Role Phone Unknown, Unknown Primary Care Provider Jeffrey Isidro DO Primary Care Provider [phone] Jeffrey Ross DO Primary Care Provider [phone] Encounter Details Date Type Department Care Team (Latest Contact Info) Description 07/31/2017 Transcribe Orders [facility] [address] [place] [address] Danny Govea MD [facility], [address] [address] [email or web address] Elevated prostate specific antigen (PSA) (Primary Dx) [...] this encounter Results * (ABNORMAL) PSA (screening) (07/31/2017 8:15 AM EST) PSA 7.46(H) 0 - 4.00 ng/mL [facility] Blood 07/31/2017 8:15 AM EST 07/31/2017 1:08 PM EST us Danny Govea MD LAB BLOOD ORDERABLES Final Resu lt [facility] [address] [place] [address] documented in this encounter Visit Diagnoses Diagnosis Elevated prostate specific antigen (PSA)- Primary documented in this encounter Additional Health Concerns Infection Onset Date Last Indicated Resolved Time CDiff-Risk 11/16/2024 11/16/2024 11/16/2024 11:0 0 PM EDT documented as of this encounter Care Teams Bioinformatics Specialist Relationship Specialty Start Date End Date Unknown, Unknown, PCP - General 07/31/17 03/25/18 Jeffrey Ross DO PCP - General Internal Medicine 03/26/18 11/15/24 Jeffrey Ross DO [address] [place] [address] PCP - General Internal Medicine 11/16/24 documented as of this encounter Additional Source Comments The information contained in this document represents components of the legal health record. It is not the complete legal health record.[facility]
--- OUTSIDE RECORDS SUMMARY | 2025-05-25 07:39 | XMS_ITS | Encounter Summary ---
Author Organization [facility] Address [address] [facility] [address] [place] [address] Phone Care Team Providers Care Health Policy Manager Name Role Phone Jeffrey Ross DO Primary Care Provider Jeffrey Ross Primary Care Provider [phone] Encounter Details Date Type Department Care Team ([facility] st Contact Info) Description 08/21/2021 Prep for Surgery [facility] [address] [place] [address] Alina Grubbs MD [address] [place] [address] Orthopedics [facility] Sports Medicine, [place] [address] [email or web address] Social History Tobacco Use Types Packs/Day Years [...] documented as of this encounter Care Teams Health Policy Manager Relationship Specialty Start Date End Date Jeffrey Ross DO [email or web address] PCP - General Internal Medicine 03/26/18 11/15/24 Jeffrey Ross DO [address] [place] [address] [email or web address] PCP - General Internal Medicine 11/16/24 documented as of this encounter Additional Source Comments The information contained in this document represents components of the legal health record. It is not the complete legal health record.[facility]
--- OUTSIDE RECORDS SUMMARY | 2025-05-25 07:39 | XMS_ITS | Encounter Summary ---
Author Organization [facility] Address [address] [facility] [address] [place] [address] Phone Care Team Providers Care Blood Bank Technologist Name Role Phone Jeffrey Ross DO Primary Care Provider [phone] Jeffrey Ross DO Primary Care Provider [phone] Encounter Details Date Type Department Care Team (Late st Contact Info) Description 08/15/2021 Transcribe Orders Virtual Department [address] [place] [address] Jeffrey Ross DO [address] [facility] [address] [place] [address] Tobacco abuse (Primary Dx) Social History Tobacco Use Types [...] as of this encounter Results * XR CHEST PA AND LATERAL 2 VIEWS (09/04/2021 10:35 AM EST) Anatomical Region Laterality Modality Chest Computed Radiogr aphy 09/04/2021 10:4 0 AM EST Impressions 09/04/2021 11:18 AM EST No acute cardiopulmonary process. ATTESTATION: Jerri Gillette as teaching physician, have reviewed the images for this case and if necessary edited the report originally created by Boni Casarez. Narrative 09/04/2021 11:18 AM EST XR CHEST PA AND LATERAL 2 VIEWS COMPARISON: CHEST [address] dated 03/26 18. FINDINGS: Devices/Tubes/Lines: None. Lungs: Similar mild diffuse prominence of the pulmonary interstitium without overt pulmonary edema or No focal consolidation. Mild hyperinflation. Lung nodules described on prior chest CT not clearly visible by radiograph. Pleura: No pleural effusion or pneumothorax. Heart/Mediastinum: Unchanged in appearance. Tortuous aorta. Bones/Soft Tissues: No significant skeletal abnormality. Moderate thoracic spine degenerative changes. Procedure Note Renetta Tellez MD - 09/04/2021 XR CHEST PA AND LATERAL 2 VIEWS COMPARISON: CHEST [address] dated 03/26 18. FINDINGS: Devices/Tubes/Lines: None. Lungs: Similar mild diffuse prominence of the pulmonary interstitiumwithout overt pulmonary edema or No focal consolidation. Mildhyperinflation. Lung nodules described on prior chest CT not clearlyvisible by radiograph. Pleura: No pleural effusion or pneumothorax. Heart/Mediastinum: Unchanged in appearance. Tortuous aorta. Bones/Soft Tissues: No significant skeletal abnormality. Moderate thoracicspine degenerative changes. IMPRESSION: No acute cardiopulmonary process. ATTESTATION: Jerri Gillette as teaching physician, havereviewed the images for this case and if necessary edited the reportoriginally created by Boni Casarez. us Jeffrey A Bigda DO IMG XR CHEST Final Result documented in this encounter Visit Diagnoses Diagnosis Tobacco abuse- Primary Tobacco use disorder Tobacco abuse Tobacco use disorder documented in this encounter Additional Health Concerns Infection Onset Date Last Indicated Resolved Time CDiff-Risk 11/16/2024 11/16/2024 11/16/2024 11:0 0 PM EDT documented as of this encounter Care Teams Blood Bank Technologist Relationship Specialty Start Date End Date Jeffrey Ross DO PCP - General Internal Medicine 03/26/18 11/15/24 Jeffrey Ross DO [address] [place] [address] PCP - General Internal Medicine 11/16/24 documented as of this encounter Additional Source Comments The information contained in this document represents components of the legal health record. It is not the complete legal health record.[facility]
--- OUTSIDE RECORDS SUMMARY | 2025-05-25 07:39 | XMS_ITS | Encounter Summary ---
Author Organization [facility] Address [address] [facility] [address] [place] [address] Phone Care Team Providers Care Customer Complaint Service Supervisor Name Role Phone Jeffrey Ross DO Primary Care Provider [phone] Jeffrey Ross DO Primary Care Provider Encounter Details Date Type Department Care Team (Latest Contact Info) Description 03/17/2019 Transcribe Orders [facility] [address] [place] [address] Danny Govea MD [address] [place] [address], [address] [address] [email or web address] Elevated prostate specific antigen (PSA) (Primary Dx) Social History Tobacco Use Types Packs/Day Years Used Date Smoking Tobacco: Every Day Alcohol Use Standard Drinks/Week Comments Yes 0 [...] this encounter Results * (ABNORMAL) PSA (screening) (03/17/2019 10:06 AM EDT) PSA 5.73(H) 0 - 4.00 ng/mL [facility] Blood 03/17/2019 10:0 6 AM EDT 03/17/2019 10:32 AM EDT us Danny Govea MD LAB BLOOD ORDERABLES Final Resu lt [facility] [address] [place] [address] documented in this encounter Visit Diagnoses Diagnosis Elevated prostate specific antigen (PSA)- Primary documented in this encounter Additional Health Concerns Infection Onset Date Last Indicated Resolved Time CDiff-Risk 11/16/2024 11/16/2024 11/16/2024 11:0 0 PM EDT documented as of this encounter Care Teams Customer Complaint Service Supervisor Relationship Specialty Start Date End Date Jeffrey Ross DO PCP - General Internal Medicine 03/26/18 11/15/24 Jeffrey Ross DO [address] [place] [address] PCP - General Internal Medicine 11/16/24 documented as of this encounter Additional Source Comments The information contained in this document represents components of the legal health record. It is not the complete legal health record.[facility]
--- OUTSIDE RECORDS SUMMARY | 2025-05-25 07:40 | XMS_ITS | Clinical Summary ---
Author Organization [address] [facility] Address [address] [place] [address] Phone Care Team Providers Care Knowledge Engineer Name Role Phone Jeffrey Ross DO Primary Care Provider [phone] Encounters Date Type Department Care Team Description 04/12/2025 Lab Requisition [facility] - Main Lab [address] [facility] [employer] [place] [address] Rna Freeman PA Pyuria from Last 3 Months Social History Tobacco Use Types Packs/Day Years Used Date Smoking Tobacco: Never Assessed Sex and Gender Information Value Date Recorded Sex Assigned at Not on file Legal Sex Male 1:31 PM EDT Gender Identity Not on file Sexual Orientation Not on file Plan of Treatment Health Maintenance Due Date Last Done Comments DTaP,Tdap,and Td Vaccines (1 - Tdap) 1965 Pneumococcal Vaccine: 50+ Ye ars (1 of 1 - PCV) 1996 Zoster Vaccines (1 of 2) 1996 RSV Immunization Adult Patie nts (1 - 1-dose 75+ series) 2021 Cholesterol Screening (Lipid Panel) 04/02/2024 Falls Risk Assessment 04/02/2024 Hepatitis C Screening 04/02/2024 Medicare Annual Wellness Visit 04/02/2024 Social Influencers of Health Screening 04/02/2024 Depression Screening 09/01/2024 COVID-19 Vaccine ( - 2023-2 5 season) 2025 Influenza Vaccine (#1) 2025 HIB Vaccines Aged Out No longer eligi ble based on patient's age to complete this topic HPV Vaccines Aged Out No longer eligi ble based on patient's age to complete this topic Hepatitis A Vaccines Aged Out No long er eligible based on patient's age to complete this topic Hepatitis B Vaccines Aged Out No long er eligible based on patient's age to complete this topic IPV Vaccines Aged Out No longer eligi ble based on patient's age to complete this topic MMR Vaccines Aged Out No longer eligi ble based on patient's age to complete this topic Meningococcal ACWY Vaccine Aged Out N o longer eligible based on patient's age to complete this topic Meningococcal B Vaccine Aged Out No l onger eligible based on patient's age to complete this topic RSV Immunization Patients Un pyeton 20 months Aged Out No longer eligible b ased on patient's age to complete this topic Varicella Vaccines Aged Out No longer eligible based on patient's age to complete this topic Procedures Procedure Name Priority Date/Time Associated Diagnosis Comments CULTURE URINE Routine 04/12/2025 12:00 AM EDT Pyuria from Last 3 Months Results * Culture urine (04/12/2025 12:00 AM EDT) Culture, Urine No growth 04/13/2025 11:10 AM EDT [facility] Urine Urine specimen obtained by clean catch procedure / Unknown Non-blood Collection / Unknown 04/12/2025 04/12/2025 12:42 PM EDT Ran [facility] MICROBIOLOGY - GENERAL ORDER SULY Final Result [facility] [address] [place] [address], from Last 3 Months Insurance MEDICARE [facility] Care Teams Knowledge Engineer Relationship Specialty Start Date End Date Jeffrey Ross DO [address] [facility] [address] [place], [place] PCP - General Internal Medicine 04/12/25
--- OUTSIDE RECORDS SUMMARY | 2025-05-25 07:40 | XMS_ITS | Encounter Summary ---
Author Organization [facility] Address [address] [place] [address] Phone Care Team Providers Care Oil Well Services Superintendent Name Role Phone Jeffrey Ross Primary Care Provider [phone] Encounter Details Date Type Department Care Team (Late st Contact Info) Description 11/29/2024 Procedure Pass [facility], Ct Scan - [address] [address] Social History Tobacco Use Types Packs/Day Years [...] on filedocumented in this encounter Care Teams Oil Well Services Superintendent Relationship Specialty Start Date End Date Jeffrey Ross DO [address] [place] [address] [email or web address] PCP - General Internal Medicine 11/16/24 documented as of this encounter Additional Source Comments The information contained in this document represents components of the legal health record. It is not the complete legal health record.[facility]
--- OUTSIDE RECORDS SUMMARY | 2025-05-25 07:40 | XMS_ITS | Encounter Summary ---
Author Organization [facility] Address [address] [place] [address] Care Team Providers Care Exceptional Student Education Aide Name Role Phone Jeffrey Ross DO Primary Care Provider [phone] Encounter Details Date Type Department Care Team (Late st Contact Info) Description 04/12/2025 Lab Requisition [facility] - Main Lab [address] [place] [phone] Ran Freeman PA [address] [address] Pyuria Social History Tobacco Use Types Packs/Day Years Used Date Smoking Tobacco: Never Assessed Sex and Gender Information Value Date Recorded Sex Assigned at Not on file Legal Sex Male 1:31 PM EDT Gender Identity Not on file Sexual Orientation Not on file documented as of this encounter Plan of Treatment Not on file documented as of this encounter Procedures Procedure Name Priority Date/Time Associated Diagnosis Comments CULTURE URINE Routine 04/12/2025 12:00 AM EDT Pyuria documented in this encounter Results * Culture urine (04/12/2025 12:00 AM EDT) Culture, Urine No growth 04/13/2025 11:10 AM EDT [facility] Urine Urine specimen obtained by clean catch procedure / Unknown Non-blood Collection / Unknown 04/12/2025 04/12/2025 12:42 PM EDT Ran [facility]CRO[facility] - GENERAL ORDER SULY Final Result [facility] [address] [place], [place] [address] [place] [phone] documented in this encounter Visit Diagnoses Diagnosis Pyuria Other nonspecific finding on examination of urine documented in this encounter Care Teams Exceptional Student Education Aide Relationship Specialty Start Date End Date Jeffrey Ross DO [address] [facility] [address] [place], [place] PCP - General Internal Medicine 04/12/25 documented as of this encounter
[2025-05-25 14:41] LABS: Alanine Aminotransferase 19 U/L (0-40); Albumin Level 3.9 g/dL (3.5-5.0); Alkaline Phosphatase 69 U/L (39-117); Anion Gap 8 (12-20); Aspartate Amino Transferase 21 U/L (5-37); Blood Urea Nitrogen 12 mg/dL (9-16); Calcium 8.6 mg/dL (8.4-10.2); Carbon Dioxide 27 mmol/L (22-29); Chloride 108 mmol/L (96-108); Estimated Glomerular Filt Rate > 60; Potassium 4.2 mmol/L (3.3-5.1); Sodium 139 mmol/L (135-145); Total Protein 6.1 g/dL (6.5-8.0)
[2025-05-25 14:55] LABS: Hemoglobin A1C 232.4154 umol/L; Total Hemoglobin (HGBA1C) 3886.5135 umol/L
== END 2025-05-25 07:35 | disposition home or self-care (01) ==
LOC: HO.MANLDS 07:34
PROVIDERS: Visit Provider Physician Assistant
DX: E11.9 Type 2 diabetes mellitus without complications (principal)
CPT/HCPCS: 36415; 80053; 83036